=== PATIENT | female | born 1985 | race Caucasian/White ===

== ENCOUNTER 2023-10-22 17:53 | Emergency (ER) | payer OTHER, SELFPAY ==
[2023-10-22 18:03] VITALS: BP 141/67; PULSE 100; RESP 18; TEMP 36.9; O2SAT 97; BMI 28.3
[2023-10-22] MEDS: TET,DIPH,PERTUSS(ACELL),VAC/PF 0.5 ML SYRINGE IM (18:30)
--- NOTE | 2023-10-29 14:29 | ED_ITS ---
HPI - Wound/Laceration <Bhaskar Duarte PA-C - Last Filed: 10/29/23 14:35> General Chief Complaint: Wound/Laceration Stated Complaint: thumb laceration Time Seen by Provider: 10/22/23 18:28 Source: patient Mode of arrival: Ambulatory History of Present Illness HPI narrative: 38-year-old female presents to the ED status post a left thumb injury sustained just prior to arrival. Patient states that she was using a sharp knife at work, when she accidentally injured her right thumb and nail. Tetanus unknown. Bleeding is controlled with pressure. Patient endorses full range of motion. An educational interpreter was used to communicate with patient. Related Data Home Medications Medication Instructions Recorded Confirmed dextroamphetamine-amphetamine PO 01/25/22 09/18/23 [Adderall] dextroamphetamine-amphetamine ER 1 cap PO QAM 04/02/23 09/18/23 25 mg 24hr capsule,extend release famotidine 40 mg tablet 40 mg PO DAILY 04/02/23 09/18/23 quetiapine 50 mg tablet 50 mg PO ONCE PM 04/02/23 09/18/23 dextroamphetamine-amphetamine ER 1 cap PO QAM 09/18/23 09/18/23 20 mg 24hr capsule,extend release nortriptyline 10 mg capsule 10 mg PO ONCE PM 09/18/23 09/18/23 promethazine 12.5 mg tablet mg PO 09/18/23 09/18/23 sumatriptan succinate 100 mg tablet 100 mg PO DIRECTED 09/18/23 09/18/23 topiramate 25 mg tablet 25 mg PO BID 09/18/23 09/18/23 Previous Rx's Medication Instructions Recorded ondansetron 4 mg disintegrating 4 mg PO Q8H PRN nausea and 04/02/23 tablet vomiting #7 tabs ipratropium bromide 21 mcg (0.03 2 spray intranasal BID PRN 09/18/23 %) nasal spray Nasal/sinus congestion #30 mL Allergies Allergy/AdvReac Type Severity Reaction Status Date / Time From VICODIN Allergy Unknown VOMITING, Uncoded 09/18/23 16:42 SEVERE ABD PAIN Review of Systems <Bhaskar Duarte PA-C - Last Filed: 10/29/23 14:35> Constitutional Constitutional: Denies chills, Denies fatigue, Denies fever(s), Denies frequent falls, Denies lethargy and Denies weakness Eyes Eyes: Denies change in vision, Denies eye discharge, Denies irritation and Denies loss of vision ENT Ears, Nose, Mouth, and Throat: Denies change in voice, Denies dizziness, Denies neck pain, Denies sore throat and Denies throat swelling Cardiovascular Cardiovascular: Denies chest pain, Denies irregular heart rhythm, Denies lightheadedness, Denies palpitations, Denies dyspnea, Denies dyspnea on exertion and Denies orthopnea Respiratory Respiratory: Denies cough, Denies dyspnea, Denies dyspnea on exertion and Denies wheezing Gastrointestinal Gastrointestinal: Denies abdominal pain, Denies change in bowel habits, Denies diarrhea, Denies nausea and Denies vomiting Musculoskeletal Musculoskeletal: Denies neck pain and Denies numbness Integumentary/Breasts Skin/Breast: Denies pruritus, Denies erythema, Denies rash and Reports wounds Comments: Left thumb laceration Neurologic Neurologic: Denies behavioral changes, Denies confusion, Denies dizziness, Denies frequent falls, Denies loss of vision, Denies numbness and Denies weakness Psychiatric Psychiatric: Denies anxiety, Denies behavioral changes, Denies confusion, Denies depression, Denies homicidal ideation and Denies suicidal ideation Endocrine Endocrine: Denies fatigue, Denies flushing and Denies palpitations Hematologic/Lymphatic Hematologic/Lymphatic: Denies easy bruising Allergic/Immunologic Allergic/Immunologic: Denies urticaria, Denies throat swelling and Denies wheezing Patient History <Bhaskar Duarte PA-C - Last Filed: 10/29/23 14:35> Social History Smoking Status: Never smoker Smoking Status: Never smoker alcohol intake frequency: other Substance Use Type: does not use Exam <Bhaskar Duarte PA-C - Last Filed: 10/29/23 14:35> Narrative Exam Narrative: Const General:?cooperative, healthy appearing and comfortable [facility] Head:?normal to inspection Ears:?hearing grossly normal bilaterally Nose:?external nose normal Face and sinus:?normal facial exam and sinuses nontender Mouth:?oral mucosae normal Throat:?posterior oropharynx normal Eyes General:?appearance normal, both eyes and all related structures Neck Neck:?normal visual inspection and no lymphadenopathy noted Resp Effort & Inspection:?normal respiratory effort Auscultation:?clear to auscultation bilaterally Cardio Rate:?regular rate Rhythm:?regular rhythm Integumentary There is a small, shallow laceration to the tip of the left thumb, extending very slightly to the nail. No nail bed injury. Bleeding is controlled with pressure. Strength and sensation is intact. Full range of motion. Patient is neurovascularly intact. Neuro General:?patient alert, patient awake and patient oriented x3 Initial Vital Signs Initial Vital Signs: Vital Signs Temperature 98.4 F 10/22/23 18:03 Pulse Rate 100 H 10/22/23 18:03 Respiratory Rate 18 10/22/23 18:03 Blood Pressure 141/67 H 10/22/23 18:03 Pulse Oximetry 97 10/22/23 18:03 Oxygen Delivery Method Room Air 10/22/23 18:03 <Mimi Rojas MD - Last Filed: 11/05/23 21:34> Initial Vital Signs Initial Vital Signs: Vital Signs Temperature 98.4 F 10/22/23 18:03 Pulse Rate 100 H 10/22/23 18:03 Respiratory Rate 18 10/22/23 18:03 Blood Pressure 141/67 H 10/22/23 18:03 Pulse Oximetry 97 10/22/23 18:03 Oxygen Delivery Method Room Air 10/22/23 18:03 Course <Bhaskar Duarte PA-C - Last Filed: 10/29/23 14:35> Orders Ordered: Discontinued Medications Diphtheria/Tetanus/Acell Pertussis (Tet,Diph,Pertuss(Acell),Vac/Pf 0.5 Ml Syringe) 0.5 ml IM .ONCE ONE Stop: 10/22/23 18:28 Last Admin: 10/22/23 18:30 Dose: 0.5 ml Documented By: RL <Mimi Rojas MD - Last Filed: 11/05/23 21:34> Orders Ordered: Discontinued Medications Diphtheria/Tetanus/Acell Pertussis (Tet,Diph,Pertuss(Acell),Vac/Pf 0.5 Ml Syr rivera) 0.5 ml IM .ONCE ONE Stop: 10/22/23 18:28 Last Admin: 10/22/23 18:30 Dose: 0.5 ml Documented By: PAULA MDM - Wound/Laceration <Bhaskar Duarte PA-C - Last Filed: 10/29/23 14:35> MDM Narrative Medical decision making narrative: 38-year-old female presents to the ED status post a left thumb injury sustained just prior to arrival. There is a small shallow laceration to the tip of the left thumb extending slightly into the nail. No deeper structures visualized on exam. Laceration is shallow and clean, highly unlikely bone injury, no imaging indicated at this time. A small amount of glue was applied to repair the laceration, and then bandaged. Tetanus was updated. Wound care, signs of infection discussed with patient. ED return precautions discussed with patient. Patient verbalized understanding. Medical records reviewed: Yes Discharge Plan Departure Patient Disposition: Home Clinical Impression: Laceration of thumb with damage to nail Qualifiers: Encounter type: initial encounter Foreign body presence: without foreign body Laterality: left Qualified Code(s): S61.112A - Laceration without foreign body of left thumb with damage to nail, initial encounter Instructions: DI for Minor Laceration Activity Restrictions/Additional Instructions: You were evaluated in the ED today for a left thumb injury. It appears that you have a small laceration from the knife accident that was repaired with glue. Please keep your wound clean and dry for the 1st 24 hours after which you may wash gently with soap and water and dry well. Please keep the wound covered to protect it. Please watch for signs of infection including worsening redness, warmth, swelling, pain, discharge. Return to the ED if you note any signs of infection or worsening symptoms. Your tetanus vaccine was updated today and is good for the next 10 years. Prescriptions: No Action dextroamphetamine-amphetamine [Adderall] PO quetiapine 50 mg tablet 50 mg PO ONCE PM famotidine 40 mg tablet 40 mg PO DAILY dextroamphetamine-amphetamine 25 mg capsule,extended release 24hr 1 cap PO QAM ondansetron 4 mg tablet,disintegrating 4 mg PO Q8H PRN (Reason: nausea and vomiting) Qty: 7 0RF nortriptyline 10 mg capsule 10 mg PO ONCE PM topiramate 25 mg tablet 25 mg PO BID sumatriptan succinate 100 mg tablet 100 mg PO DIRECTED dextroamphetamine-amphetamine 20 mg capsule,extended release 24hr 1 cap PO QAM promethazine 12.5 mg tablet PO ipratropium bromide 21 mcg (0.03 %) spray,non-aerosol 2 spray intranasal BID PRN (Reason: Nasal/sinus congestion) Qty: 30 0RF Rx Instructions: administer into each nostril Referrals: Miscellaneous,Doctor, [Primary Care Provider] - Stand Alone Forms: Patient Portal/API ED Sign-out <Mimi Rojas MD - Last Filed: 11/05/23 21:34> Cosign ED Attending Cospauletteature Attestation: I was immediately available in the department for consultation throughout this patient's visit. Mimi Rojas MD
== END 2023-10-22 18:36 | disposition home or self-care (01) ==
PROVIDERS: Emergency Provider Student in an Organized Health Care Education/Training Program
DX: S61.112A Laceration without foreign body of left thumb with damage to nail, initial encounter (principal); W26.0XXA Contact with knife, initial encounter; Z23 Encounter for immunization
CPT/HCPCS: 90471; 99283; 90715

== ENCOUNTER → 2023-12-21 14:02 | Outpatient (CLI) | payer OTHER, SELFPAY ==
--- NOTE | 2023-12-21 14:04 | DI.RAD.S_ITS ---
PROCEDURE: XR FOOT LT MIN 3V INDICATIONS: L and I, foot and ankle pain TECHNIQUE: 3 views of the foot were acquired. COMPARISON: None. FINDINGS: Bones: No fractures or dislocations. Tiny plantar calcaneal enthesophyte is seen. No suspicious bony lesions. Soft tissues: No tibiotalar joint effusion. Achilles tendon appears normal. IMPRESSION: Tiny plantar calcaneal enthesophyte. No left foot fracture or dislocation. No gross soft tissue abnormalities. Dictated by: Rojas Saenz M.D. on 12/21/2023 at 17:18 Approved by: Rojas Saenz M.D. on 12/21/2023 at 17:19
--- NOTE | 2023-12-21 14:04 | DI.RAD.S_ITS ---
PROCEDURE: XR ANKLE LT MIN 3V INDICATIONS: L and I, foot and ankle pain TECHNIQUE: 3 views of the ankle were acquired. COMPARISON: None. FINDINGS: Bones: No fractures or dislocations. Ankle mortise is normally aligned. Tiny plantar calcaneal enthesophyte is seen. No suspicious bony lesions. Soft tissues: No tibiotalar joint effusion. Achilles tendon appears normal. IMPRESSION: * No ankle fracture or dislocation. Ankle mortise is congruent. Tiny plantar calcaneal enthesophyte. Dictated by: Rojas Saenz M.D. on 12/21/2023 at 16:16 Approved by: Rojas Saenz M.D. on 12/21/2023 at 17:18
== END ==
PROVIDERS: Referring Provider Nurse Practitioner Family; Visit Provider Nurse Practitioner Family
DX: S96.912A Strain of unspecified muscle and tendon at ankle and foot level, left foot, initial encounter (principal); M77.32 Calcaneal spur, left foot; X58.XXXA Exposure to other specified factors, initial encounter
CPT/HCPCS: 73610; 73630

== ENCOUNTER → 2024-01-07 17:12 | Outpatient (CLI) | payer SELFPAY ==
[2024-01-07 18:07] LABS: Influenza A - CEPHEID Flu A NEGATIVE (NEGATIVE); Influenza B - CEPHEID Flu B NEGATIVE (NEGATIVE); Respiratory Syncytial Virus Negative (Negative)
[2024-01-07 18:08] LABS: COVID-19 CEPHEID 4-PLEX PCR Negative (Negative)
== END ==
PROVIDERS: Visit Provider Student in an Organized Health Care Education/Training Program
DX: R09.81 Nasal congestion (principal)
CPT/HCPCS: 0241U

== ENCOUNTER 2024-01-11 19:19 | Inpatient (IN) | payer MEDICARE, SELFPAY ==
[2024-01-11] VITALS (16 sets, daily range): BP systolic 121–139; BP diastolic 71–91; PULSE 80–94; RESP 18; TEMP 37.1; O2SAT 93–98; BMI 26.4
[2024-01-11 19:49] LABS: Add Manual Diff / Slide Review NO; Basophils Absolute Auto 100 /uL (0-100); Basophils Percent Auto 0.3 % (0-2); Eosinophils Absolute Auto 100 /uL (0-450); Eosinophils Percent Auto 0.8 % (2-4); Hematocrit 36.2 % (36-46); Hemoglobin 12.1 g/dL (12.0-16.0); Lymphocytes Absolute Auto 1500 /uL (1100-4500); Lymphocytes Percent Auto 9.9 % (25-40); Mean Corpuscular HGB Conc 33.4 % (30-36); Mean Corpuscular Hemoglobin 26.8 PG (26-34); Mean Corpuscular Volume 80.3 fL (80-100); Monocytes Absolute Auto 1400 /uL (0-900); Monocytes Percent Auto 9.8 % (3-14); Neutrophils Absolute Auto 11700 /uL (1500-7000); Neutrophils Percent Auto 79.2 % (50-75); Platelet Count 431 X10^3/uL (150-400); Red Blood Cell Count 4.51 X10^6/uL (4.0-5.2); Red Cell Distribution Width 15.4 % (11.6-14.8); White Blood Cell Count 14.7 X10^3/uL (4.5-11.0)
[2024-01-11 19:54] LABS: Alanine Aminotransferase 58 IU/L (<35); Albumin 4.3 g/dL (3.5-5.0); Albumin Globulin Ratio 1.3 (1.0-2.8); Alkaline Phosphatase 54 U/L (38-126); Aspartate Aminotransferase 49 IU/L (14-36); BUN Creatinine Ratio 7.1 (6-22); Bilirubin Total 0.8 mg/dL (0.2-1.3); Blood Urea Nitrogen 15 mg/dL (7-17); Calcium 8.8 mg/dL (8.4-10.2); Carbon Dioxide 23 mmol/L (22-32); Chloride 102 mmol/L (98-107); Estimated Glomerular Filt Rate 30 mL/min (>60); Globulin 3.3 g/dL (1.7-4.1); Glucose 102 mg/dL (70-100); HEMOLYSIS 89 (0-50); Lipase 70 U/L (23-300); Sodium 135 mmol/L (137-145); Total Protein 7.6 g/dL (6.3-8.2)
[2024-01-11 19:55] LABS: Potassium 3.9 mmol/L (3.4-5.1)
[2024-01-11] MEDS: ONDANSETRON 4 MG/2 ML INJ IV ×2 (20:03→22:02)
[2024-01-11] MEDS: HYDROMORPHONE 0.5 MG INJ IV (20:25)
[2024-01-11] MEDS: SODIUM CHLORIDE 0.9% 1,000 ML 1000 ML IV (20:40)
[2024-01-11 20:44] LABS: Bacteria Urine Few (2-10); Culture Indicated Urine Cult Not Indicated; RBC Urine 0-1/HPF (0-5/HPF); Squamous Epithelial Cell Urine 5-10 /HPF (0-5/HPF); Urine Volume 10mL (spun); WBC Urine 0-1/HPF (0-5/HPF)
--- NOTE | 2024-01-11 20:46 | ED.ABDPAIN ---
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 Complains of recent right-sided dental/facial infection, prescribed course of Augmentin antibiotic on 01/07/2024, she has had subsequent nausea and vomiting and also nonbloody loose stools for the last 3 days. Multiple episodes of nonbloody emesis. Multiple episodes of nonbloody nonmucoid stools. She has right-sided abdominal pain since yesterday that is increasing. No injury or trauma new activities. Denies pain with urination. Denies cough shortness of breath. Related Data Home Medications Medication Instructions Recorded Confirmed dextroamphetamine-amphetamine ER 1 cap PO QAM 09/18/23 01/12/24 20 mg 24hr capsule,extend release topiramate 25 mg tablet 25 mg PO BID 09/18/23 01/12/24 Previous Rx's Medication Instructions Recorded ipratropium bromide 21 mcg (0.03 2 spray intranasal BID PRN 09/18/23 %) nasal spray Nasal/sinus congestion #30 mL amoxicillin 875 mg-potassium 1 tab PO Q12H dental infection 10 01/07/24 clavulanate 125 mg tablet days #20 tabs amoxicillin 875 mg-potassium 1 tab PO BID for 3 additional days 01/12/24 clavulanate 125 mg tablet #6 tabs Allergies Allergy/AdvReac Type Severity Reaction Status Date / Time From VICODIN Allergy Unknown VOMITING, Uncoded 01/07/24 16:32 SEVERE ABD PAIN Review of Systems Review of Systems Narrative: see HPI Patient History Social History household members: children Smoking Status: Never smoker alcohol intake: former Smoking Status: Never smoker alcohol intake frequency: other Substance Use Type: marijuana Exam Narrative Exam Narrative: GENERAL: Well-developed patient, in mild distress. HEAD: Atraumatic. Normocephalic. EYES: Pupils equal round and reactive. Extraocular motions intact. No scleral icterus. No injection or drainage. ENT: Nose without bleeding, purulent drainage. Throat without erythema, tonsillar hypertrophy or exudate. Airway patent. NECK: Trachea midline. Non tender CARDIOVASCULAR: Regular rate and rhythm without murmurs, gallops, or rubs. RESPIRATORY: Clear to auscultation. Breath sounds equal bilaterally. No wheezes, rales, or rhonchi. GASTROINTESTINAL: Abdomen soft, non-tender, nondistended. EXTREMITIES: No edema or joint tenderness. BACK: Nontender without deformity or crepitance. No flank tenderness. NEURO: AOx3. Motor functions grossly nonfocal SKIN: No rash or erythema of visible areas Initial Vital Signs Initial Vital Signs: Vital Signs Blood Pressure 132/86 01/11/24 19:30 Course Orders Ordered: ED Orders 01/12/24 06:46 Complete Blood Count AUTO DIFF Routine Comprehensive Metabolic Panel Routine Lactate (Lactic Acid) Stat Acetaminophen (Acetaminophen 325 Mg Tablet) 650 mg PO Q6H PRN PRN Reason: Fever/Mild Pain (1-3) Hydromorphone HCl (Hydromorphone 0.5 Mg Inj) 0.5 mg IV Q2H PRN PRN Reason: Pain, Moderate (4-6) Last Admin: 01/12/24 10:00 Dose: 0.5 mg Documented By: NATHALY Sodium Chloride (Normal Saline 0.9%) 1,000 mls @ 100 mls/hr IV CONT [facility] Last Admin: 01/12/24 05:20 Dose: 100 mls/hr Documented By: SHELTON Metronidazole (Flagyl) 500 mg in 100 mls @ 100 mls/hr IV Q8H [facility] Last Infusion: 01/12/24 14:10 Dose: Infused Documented By: Admin: 01/12/24 13:10 Dose: 100 mls/hr Documented By: Infusion: 01/12/24 06:23 Dose: Infused Documented By: Admin: 01/12/24 05:23 Dose: 100 mls/hr Documented By: SHELTON Ciprofloxacin (Cipro) 400 mg in 200 mls @ 200 mls/hr IV Q24H [facility] Last Infusion: 01/12/24 11:01 Dose: Infused Documented By: Admin: 01/12/24 10:01 Dose: 200 mls/hr Documented By: NATHALY Lorazepam (Lorazepam 2 Mg/Ml Inj) 0.5 mg IV Q4HR PRN PRN Reason: Nausea And Vomiting Last Admin: 01/12/24 14:20 Dose: 0.5 mg Documented By: NATHALY Metoclopramide HCl (Metoclopramide 10 Mg/2 Ml Inj) 5 mg IV Q6HR PRN PRN Reason: Nausea And Vomiting Last Admin: 01/12/24 10:00 Dose: 5 mg Documented By: NATHALY Naloxone HCl (Naloxone 0.4 Mg/Ml Vial) 0.2 mg IV Q2MIN PRN PRN Reason: Opiate Reversal Stored In Pharmacy 1 each PO PRN PRN PRN Reason: PROTOCOL Discontinued Medications Hydromorphone HCl (Hydromorphone 0.5 Mg Inj) 0.5 mg IV NOW ONE Stop: 01/11/24 20:19 Last Admin: 01/11/24 20:25 Dose: 0.5 mg Documented By: JONI Hydromorphone HCl (Hydromorphone 0.5 Mg Inj) 0.5 mg IV NOW ONE Stop: 01/11/24 23:57 Last Admin: 01/12/24 00:06 Dose: 0.5 mg Documented By: JONI Sodium Chloride (Normal Saline 0.9%) 1,000 mls @ 1,000 mls/hr IV BOLUS ONE Stop: 01/11/24 21:33 Last Infusion: 01/11/24 21:48 Dose: Infused Documented By: Admin: 01/11/24 20:40 Dose: 1,000 mls/hr Documented By: JONI Piperacillin Sod/Tazobactam (Sod 4.5 gm/ Sodium Chloride) 100 mls @ 200 mls/hr IV NOW ONE Stop: 01/12/24 00:22 Last Infusion: 01/12/24 01:20 Dose: Infused Documented By: Admin: 01/12/24 00:47 Dose: 200 mls/hr Documented By: Sodium Chloride (Normal Saline 0.9%) 1,000 mls @ 1,000 mls/hr IV BOLUS ONE Stop: 01/12/24 01:58 Last Infusion: 01/12/24 02:10 Dose: Infused Documented By: Admin: 01/12/24 01:09 Dose: 1,000 mls/hr Documented By: JONI Ciprofloxacin (Cipro) 400 mg in 200 mls @ 200 mls/hr IV Q12H [facility] Last Admin: 01/12/24 06:23 Dose: Not Given Documented By: SHELTON Ondansetron HCl (Ondansetron 4 Mg/2 Ml Inj) 4 mg IV NOW ONE Stop: 01/11/24 19:42 Last Admin: 01/11/24 20:03 Dose: 4 mg Documented By: Ondansetron HCl (Ondansetron 4 Mg/2 Ml Inj) 4 mg IV NOW ONE Stop: 01/11/24 21:51 Last Admin: 01/11/24 22:02 Dose: 4 mg Documented By: JONI Ondansetron HCl (Ondansetron 4 Mg/2 Ml Inj) 4 mg IV NOW ONE Stop: 01/11/24 21:02 Last Admin: 01/11/24 22:30 Dose: Not Given Documented By: JONI Ondansetron HCl (Ondansetron 4 Mg Odt Prepack) 1 bottle MISC DIRECTED ONE Stop: 01/12/24 00:56 Last Admin: 01/12/24 03:30 Dose: Not Given Documented By: JONI Tramadol HCl (Tramadol 50 Mg Tablet) 50 mg PO NOW ONE Stop: 01/12/24 00:51 Last Admin: 01/12/24 02:01 Dose: 50 mg Documented By: JONI Vital Signs Vital signs: Vital Signs - 8 hr 01/11/24 19:35 Temperature 98.8 F Pulse Rate 85 Respiratory Rate 18 Blood Pressure 132/86 Pulse Oximetry 98 Oxygen Delivery Method Room Air MDM - Abdominal Pain Lab Data Attestation: I reviewed the patient's lab results. 01/12/24 06:46 01/12/24 06:46 Labs: Lab Results 01/11/24 01/11/24 01/11/24 Range/Units 19:15 20:20 21:47 WBC 14.7 H (4.5-11.0) X10^3/uL RBC 4.51 (4.0-5.2) X10^6/uL Hgb 12.1 (12.0-16.0) g/dL Hct 36.2 (36-46) % MCV 80.3 (80-100) fL MCH 26.8 (26-34) PG MCHC 33.4 (30-36) % RDW 15.4 H (11.6-14.8) % Plt Count 431 H (150-400) X10^3/uL Neut % (Auto) 79.2 H (50-75) % Lymph % (Auto) 9.9 L (25-40) % [place] % (Auto) 9.8 (3-14) % Eos % (Auto) 0.8 L (2-4) % Baso % (Auto) 0.3 (0-2) % Neut # (Auto) 17855 H (5398-4333) /uL Lymph # (Auto) 1500 (9337-7595) /uL [place] # (Auto) 1400 H (0-900) /uL Eos # (Auto) 100 (0-450) /uL Baso # (Auto) 100 (0-100) /uL Sodium 135 L (137-145) mmol/L Potassium 3.9 (3.4-5.1) mmol/L Chloride 102 (98-107) mmol/L Carbon Dioxide 23 (22-32) mmol/L BUN 15 (7-17) mg/dL Creatinine 2.12 H (0.52-1.04) mg/dL Estimated GFR 30 L (>60) mL/min BUN/Creatinine Ratio 7.1 (6-22) Glucose 102 H (70-100) mg/dL Calcium 8.8 (8.4-10.2) mg/dL Total Bilirubin 0.8 (0.2-1.3) mg/dL AST 49 H (14-36) IU/L ALT 58 H (<35) IU/L Alkaline Phosphatase 54 (38-126) U/L Ammonia < 9 L (9-30) umol/L Total Protein 7.6 (6.3-8.2) g/dL Albumin 4.3 (3.5-5.0) g/dL Globulin 3.3 (1.7-4.1) g/dL Albumin/Globulin Ratio 1.3 (1.0-2.8) Lipase 70 (23-300) U/L HCG, Quant < 2.39 mIU/mL Urine RBC 0-1/hpf (0-5/HPF) Urine WBC 0-1/hpf (0-5/HPF) Ur Squamous Epith Cells 5-10 /hpf H (0-5/HPF) Urine Bacteria Few (2-10) H (None) Ur Culture Indicated? Cult not indicated Vol Urine Centrifuged 10ml (spun) 01/12/24 Range/Units 02:51 WBC (4.5-11.0) X10^3/uL RBC (4.0-5.2) X10^6/uL Hgb (12.0-16.0) g/dL Hct (36-46) % MCV (80-100) fL MCH (26-34) PG MCHC (30-36) % RDW (11.6-14.8) % Plt Count (150-400) X10^3/uL Neut % (Auto) (50-75) % Lymph % (Auto) (25-40) % [place] % (Auto) (3-14) % Eos % (Auto) (2-4) % Baso % (Auto) (0-2) % Neut # (Auto) (8292-6754) /uL Lymph # (Auto) (2408-5411) /uL [place] # (Auto) (0-900) /uL Eos # (Auto) (0-450) /uL Baso # (Auto) (0-100) /uL Sodium 138 (137-145) mmol/L Potassium 3.7 (3.4-5.1) mmol/L Chloride 111 H (98-107) mmol/L Carbon Dioxide 18 L (22-32) mmol/L BUN 13 (7-17) mg/dL Creatinine 1.93 H (0.52-1.04) mg/dL Estimated GFR 33 L (>60) mL/min BUN/Creatinine Ratio 6.7 (6-22) Glucose 114 H (70-100) mg/dL Calcium 7.7 L (8.4-10.2) mg/dL Total Bilirubin (0.2-1.3) mg/dL AST (14-36) IU/L ALT (<35) IU/L Alkaline Phosphatase (38-126) U/L Ammonia (9-30) umol/L Total Protein (6.3-8.2) g/dL Albumin (3.5-5.0) g/dL Globulin (1.7-4.1) g/dL Albumin/Globulin Ratio (1.0-2.8) Lipase (23-300) U/L HCG, Quant mIU/mL Urine RBC (0-5/HPF) Urine WBC (0-5/HPF) Ur Squamous Epith Cells (0-5/HPF) Urine Bacteria (None) Ur Culture Indicated? Vol Urine Centrifuged Point of care testing: Point of Care Testing Test Results Negative Urine Dip Bedside Urine Glucose Negative Bedside Urine Bilirubin - Negative Bedside Urine Ketone - Negative Urine Specific [place] 1.015 Bedside Urine Occult Blood - Negative Bedside Urine pH 6.0 Bedside Urine Protein ++ 100 Bedside Urine Urobilinogen - Negative Bedside Urine Nitrite - Negative Bedside Urine Leukocytes - Negative Esterase Imaging Data CT scan - abdomen/pelvis: Radiologist's Impression: [address] [address] [address] Scan Report Signed Patient: Lupe rS MR#: [id number] : 1985 Acct:[id number] Age/Sex: 39 / F Date of Service: 01/11/24 Loc: ED Accession Number: [id number] Procedure: CT abdomen pelvis wo con Ordering Provider: Ryder Lee MD PROCEDURE: CT ABDOMEN PELVIS WO CON INDICATIONS: abd pain, inc creat, noncontrast TECHNIQUE: Axial sections were acquired from the lung bases to the pubic symphysis. Coronal and sagittal reformats were performed. For radiation dose reduction, the following was used: automated exposure control, adjustment of mA and/or kV according to patient size. COMPARISON: None. FINDINGS: Image quality: Diagnostic Lower chest: Unremarkable. Basal atelectasis Liver: No contour deforming mass. Solid organs are not well evaluated without IV contrast. Gallbladder and biliary system: Unremarkable, nondilated Pancreas: No ductal dilation Spleen: Nonenlarged Adrenals: No discrete nodules Kidneys: No contour deforming mass or hydronephrosis no obstructing calcified stone or hydronephrosis Vessels and lymph nodes: No abdominal aortic aneurysm. No pathologic lymph nodes by size criteria. Bowel and peritoneum: No small bowel obstruction. No pathologic ascites. Mostly liquid right-sided colonic contents. Body wall: Tiny fat containing umbilical hernia Pelvis: Bladder is unremarkable. Prominent adnexal structures, not well evaluated on CT Bones: Mild lumbosacral degenerative changes IMPRESSION: Mildly distended liquid proximal colonic contents, possibly colitis. No small bowel obstruction. No obstructing calcified stone or hydronephrosis Prominent adnexal structures, probably ovarian cysts. Consider ultrasound if there is further concern. Other findings as above. Limited noncontrast CT Dictated by: Daniele Iglesias M.D. on 01/11/2024 at 22:02 Approved by: Daniele Iglesias M.D. 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 No grossly obvious facial swelling. Some tenderness right lower quadrant. Afebrile, sirs screen negative. HCG negative. Creatinine elevated, likely prerenal, IV fluids ordered. We will add stool studies including C diff toxin. DX consider dehydration from enteritis/gastroenteritis, C diff colitis, other form of colitis, diverticulitis, bowel obstruction, acute appendicitis, other. CT abdomen and pelvis noncontrast imaging requested. CT abdomen and pelvis noncontrast study shows right-sided fluid-filled large colon, possible colitis, no mention of inflammatory changes, no bowel obstructive changes, no perforation or abscess formation. No obstructive uropathy changes, no intrinsic renal pathology described. See radiology report No stool specimen to screen for C diff or other pathogens, however CT findings seem focal and not caldera-colitis like changes. Patient taking Augmentin for dental infection already. IV Zosyn dose for now. Repeat IV opiate pain medication. Repeat BMP after 2000 mL normal saline shows creatinine 1.93 little improvement, serum CO2 18 decreasing after IV fluids. Lipase was normal prior. Patient still with nausea unable to keep oral fluid challenge. Consider admission, will contact hospitalist. 0400, case discussed with hospitalist Dr. Chin, accepts patient for admission to inpatient Critical Care Time Critical Care Time Critical Care Time: Yes Total Critical Care Time: 35 Attestation: The high probability of a clinically significant, sudden or life threatening deterioration of the [abdominopelvic, genitourinary, gastrointestinal] system(s) required my full and direct attention, intervention and personal management. The aggregate critical care time was [35] minutes. This time is in addition to time spent performing reported procedures but includes the following: [x] Data Review and interpretation [x] Patient assessment and monitoring of vital signs [x] Documentation [x] Medication orders and management Discharge Plan Departure Patient Disposition: Admitted As Inpatient Clinical Impression: Abdominal pain, Colitis, Dehydration, Nausea vomiting and diarrhea, ALBERT (acute kidney injury), History of deafness Admit Date/Time: 01/12/24 04:12 Admit Provider: Lisandro Chin
[2024-01-11 21:12] LABS: HCG Quantitative /Beta subunit < 2.39 mIU/mL
[2024-01-11 22:05] LABS: Ammonia (NH3) < 9 umol/L (9-30)
[2024-01-12] VITALS (16 sets, daily range): BP systolic 104–149; BP diastolic 53–88; PULSE 67–87; RESP 12–18; TEMP 36.4–37; O2SAT 95–99; BMI 27.5
[2024-01-12] MEDS: HYDROMORPHONE 0.5 MG INJ IV ×4 (00:06→20:11)
[2024-01-12] MEDS: PIPERACILLIN/TAZO 4.5 GM in SODIUM CHLORIDE 0.9% 100 ML IV (00:47)
[2024-01-12] MEDS: SODIUM CHLORIDE 0.9% 1,000 ML 1000 ML IV (01:09)
[2024-01-12] MEDS: TRAMADOL 50 MG TABLET PO (02:01)
[2024-01-12 03:16] LABS: BUN Creatinine Ratio 6.7 (6-22); Blood Urea Nitrogen 13 mg/dL (7-17); Calcium 7.7 mg/dL (8.4-10.2); Carbon Dioxide 18 mmol/L (22-32); Chloride 111 mmol/L (98-107); Estimated Glomerular Filt Rate 33 mL/min (>60); Glucose 114 mg/dL (70-100); HEMOLYSIS < 15 (0-50); Potassium 3.7 mmol/L (3.4-5.1); Sodium 138 mmol/L (137-145)
[2024-01-12] MEDS: SODIUM CHLORIDE 0.9% 1,000 ML 100 ML IV ×2 (05:20→17:54)
[2024-01-12] MEDS: metroNIDAZOLE 500 MG/100 ML PIGGYBACK 100 MG IV ×3 (05:23→19:57)
[2024-01-12 06:56] LABS: Add Manual Diff / Slide Review NO; Basophils Absolute Auto 100 /uL (0-100); Basophils Percent Auto 0.8 % (0-2); Eosinophils Absolute Auto 0 /uL (0-450); Eosinophils Percent Auto 0.2 % (2-4); Hematocrit 33.4 % (36-46); Lymphocytes Absolute Auto 1000 /uL (1100-4500); Lymphocytes Percent Auto 8.2 % (25-40); Mean Corpuscular HGB Conc 32.9 % (30-36); Mean Corpuscular Hemoglobin 26.6 PG (26-34); Monocytes Absolute Auto 1100 /uL (0-900); Monocytes Percent Auto 8.5 % (3-14); Neutrophils Absolute Auto 10200 /uL (1500-7000); Neutrophils Percent Auto 82.3 % (50-75); Platelet Count 363 X10^3/uL (150-400); Red Blood Cell Count 4.12 X10^6/uL (4.0-5.2); Red Cell Distribution Width 15.6 % (11.6-14.8); White Blood Cell Count 12.4 X10^3/uL (4.5-11.0)
--- NOTE | 2024-01-12 06:59 | PC.NURSE ---
Pt. admiitted to room 209. oriented to her room. Assessment done through [place] Sign Language. Home medications sent to Pharmacy, vomited 300 cc of bile looking emesis. C/O abdominal pain, but does not want any order for pain when having conversation with Dr. Chin. Will continue plan of care & monitor.
--- NOTE | 2024-01-12 07:13 | P.HP_ITS ---
History of Present Illness History of Present Illness Chief complaint: abd pain Narrative: 39 year old female with no significant past medical history other than legally deaf presents with nausea, vomiting, diarrhea and abdominal pain. Per the patient's report, on 01/07/24, the patient had a tooth infection and was prescribed Augmentin. The patient states that after taking Augmentin for 2-3 days, the patient started to nausea, non bloody vomiting/diarrhea. The patient states that due to her severe nausea and vomiting, the patient couldn't take much the rest of her Augmentin. The patient also developed some right sided, moderate, aching abdominal pain since. Otherwise, the patient denies any fever, chills, chest pain, shortness of breath or dysuria. In our ER, the patient was hemodynamically stable. WBC was 14 but no other sign of sepsis. CT scan of abdomen shows possible localized colitis. C dif was sent. Patient received one dose of zosyn. UA was negative. Cr was 2.2 but after 2L of IVF Cr only improved to 1.9. Our ER physician requested admission for further treatment. [facility] Social History household members: children Smoking Status: Never smoker alcohol intake: former Meds Home Medications and Allergies Home Medications Medication Instructions Recorded Confirmed Type dextroamphetamine-amphetamine ER 1 cap PO QAM 09/18/23 01/12/24 History 20 mg 24hr capsule,extend release ipratropium bromide 21 mcg (0.03 2 spray intranasal BID PRN 09/18/23 01/12/24 Rx %) nasal spray Nasal/sinus congestion #30 mL topiramate 25 mg tablet 25 mg PO BID 09/18/23 01/12/24 History amoxicillin 875 mg-potassium 1 tab PO Q12H dental infection 10 01/07/24 01/12/24 Rx clavulanate 125 mg tablet days #20 tabs amoxicillin 875 mg-potassium 1 tab PO BID for 3 additional days 01/12/24 Rx clavulanate 125 mg tablet #6 tabs Allergies Allergy/AdvReac Type Severity Reaction Status Date / Time From VICODIN Allergy Unknown VOMITING, Uncoded 01/07/24 16:32 SEVERE ABD PAIN Review of Systems Review of Systems Narrative: 12 points of ROS are negative except for what was mentioned per HPI. Exam Vital Signs (past 8 hours): - 01/11/24 23:30 01/11/24 23:30 01/12/24 00:00 Temperature Pulse Rate 90 Respiratory Rate Blood Pressure 134/77 115/58 L Pulse Oximetry 97 Oxygen Delivery Method Oxygen Flow Rate 01/12/24 00:00 01/12/24 00:30 01/12/24 00:30 Temperature Pulse Rate 75 79 Respiratory Rate Blood Pressure 104/53 L Pulse Oximetry 96 95 Oxygen Delivery Method Oxygen Flow Rate 01/12/24 01:00 01/12/24 01:00 01/12/24 01:26 Temperature Pulse Rate 76 Respiratory Rate Blood Pressure 109/65 132/75 Pulse Oximetry 95 Oxygen Delivery Method Oxygen Flow Rate 01/12/24 01:26 01/12/24 01:30 01/12/24 01:30 Temperature Pulse Rate 81 76 Respiratory Rate Blood Pressure 120/68 Pulse Oximetry 98 98 Oxygen Delivery Method Oxygen Flow Rate 01/12/24 02:00 01/12/24 02:00 01/12/24 02:30 Temperature Pulse Rate 76 Respiratory Rate Blood Pressure 133/83 128/57 L Pulse Oximetry 98 Oxygen Delivery Method Oxygen Flow Rate 01/12/24 02:30 01/12/24 03:00 01/12/24 03:00 Temperature Pulse Rate 84 70 Respiratory Rate Blood Pressure 134/70 Pulse Oximetry 97 95 Oxygen Delivery Method Oxygen Flow Rate 01/12/24 03:30 01/12/24 04:00 01/12/24 04:00 Temperature Pulse Rate 75 77 Respiratory Rate Blood Pressure 125/74 Pulse Oximetry 95 98 Oxygen Delivery Method Oxygen Flow Rate 01/12/24 04:30 01/12/24 04:30 01/12/24 06:38 Temperature 98.0 F Pulse Rate 67 70 Respiratory Rate 14 Blood Pressure 141/72 H 127/81 Pulse Oximetry 95 98 Oxygen Delivery Method Room Air Oxygen Flow Rate 0 Oxygen Delivery Method Room Air Oxygen Flow Rate 0 Narrative Exam Narrative: GENERAL: The patient is not in any acute distressed. Awake and alert. HEENT: Nonicteric sclerae, PERRLA, EOMI. Oropharynx clear. Moist mucous membranes. Conjunctivae appear well perfused. HEART: Regular rate and rhythm without murmurs. No lower extremities edema. LUNGS: Clear to auscultation bilaterally. No wheezing, crackles or rhonchi ABDOMEN: Soft, right sided tenderness without rebound or guarding. positive bowel sounds, SKIN: No rash, no excessive bruising, petechiae, or purpura. NEUROLOGIC: AxO x 3. Cranial nerves II-XII intact without motor/sensory deficit. Objective Labs 01/12/24 06:46 01/12/24 02:51 Labs: Laboratory Results - last 24 hr 01/11/24 01/11/24 01/11/24 19:15 20:20 21:47 WBC 14.7 H RBC 4.51 Hgb 12.1 Hct 36.2 MCV 80.3 MCH 26.8 MCHC 33.4 RDW 15.4 H Plt Count 431 H Neut % (Auto) 79.2 H Lymph % (Auto) 9.9 L [place] % (Auto) 9.8 Eos % (Auto) 0.8 L Baso % (Auto) 0.3 Neut # (Auto) 75685 H Lymph # (Auto) 1500 [place] # (Auto) 1400 H Eos # (Auto) 100 Baso # (Auto) 100 Sodium 135 L Potassium 3.9 Chloride 102 Carbon Dioxide 23 BUN 15 Creatinine 2.12 H Estimated GFR 30 L BUN/Creatinine Ratio 7.1 Glucose 102 H Calcium 8.8 Total Bilirubin 0.8 AST 49 H ALT 58 H Alkaline Phosphatase 54 Ammonia < 9 L Total Protein 7.6 Albumin 4.3 Globulin 3.3 Albumin/Globulin Ratio 1.3 Lipase 70 HCG, Quant < 2.39 Urine RBC 0-1/hpf Urine WBC 0-1/hpf Ur Squamous Epith Cells 5-10 /hpf H Urine Bacteria Few (2-10) H Ur Culture Indicated? Cult not indicated Vol Urine Centrifuged 10ml (spun) 01/12/24 01/12/24 02:51 06:46 WBC 12.4 H RBC 4.12 Hgb 11.0 L Hct 33.4 L MCV 81.0 MCH 26.6 MCHC 32.9 RDW 15.6 H Plt Count 363 Neut % (Auto) 82.3 H Lymph % (Auto) 8.2 L [place] % (Auto) 8.5 Eos % (Auto) 0.2 L Baso % (Auto) 0.8 Neut # (Auto) 10679 H Lymph # (Auto) 1000 L [place] # (Auto) 1100 H Eos # (Auto) 0 Baso # (Auto) 100 Sodium 138 Potassium 3.7 Chloride 111 H Carbon Dioxide 18 L BUN 13 Creatinine 1.93 H Estimated GFR 33 L BUN/Creatinine Ratio 6.7 Glucose 114 H Calcium 7.7 L Total Bilirubin AST ALT Alkaline Phosphatase Ammonia Total Protein Albumin Globulin Albumin/Globulin Ratio Lipase HCG, Quant Urine RBC Urine WBC Ur Squamous Epith Cells Urine Bacteria Ur Culture Indicated? Vol Urine Centrifuged Assessment & Plan Assessment & Plan narrative: Possible colitis. Recent treatment of Augmentin.. Admit the patient to medical inpatient. Patient is not septic at this time. C dif studies ordered in ER. Continue IVF and will start patient on IV Ciprofloxacin/Flagyl. Recent tooth infection s/p 2-3 days of Augmentin as outpatient. Note patient also received a dose of Zosyn in ER. Will continue antibiotics as above. Patient will need to follow up with dentist post chischarge. Leukocytosis. likely from above. Not septic. Monitor for now. ALBERT. Cr 2.2 -> 1.9 after 2L of IVF. Likely from dehydration secondary to N/V/D. IVF and monitor renal function. DVT PPx SCDs Code status full code Disposition 2-3 days to home. Time-Based Coding :: [TOTAL MINUTES] spent with patient and on the chart (including review of chart, obtaining history, exam, reviewing outside data, placing orders, documenting exam and treatment plan, and counseling patient) on [DATE]. Quality VTE Deep Vein Thrombosis/Pulmonary Embolism Present on Admission: No
[2024-01-12 07:24] LABS: Lactate (Lactic Acid) 0.5 mmol/L (0.7-2.1)
[2024-01-12 07:26] LABS: Alanine Aminotransferase 41 IU/L (<35); Albumin 3.6 g/dL (3.5-5.0); Albumin Globulin Ratio 1.3 (1.0-2.8); Alkaline Phosphatase 57 U/L (38-126); Aspartate Aminotransferase 29 IU/L (14-36); BUN Creatinine Ratio 7.1 (6-22); Bilirubin Total 0.5 mg/dL (0.2-1.3); Blood Urea Nitrogen 14 mg/dL (7-17); Calcium 7.8 mg/dL (8.4-10.2); Carbon Dioxide 21 mmol/L (22-32); Chloride 111 mmol/L (98-107); Estimated Glomerular Filt Rate 33 mL/min (>60); Globulin 2.7 g/dL (1.7-4.1); Glucose 116 mg/dL (70-100); HEMOLYSIS < 15 (0-50); Potassium 3.8 mmol/L (3.4-5.1); Sodium 139 mmol/L (137-145); Total Protein 6.3 g/dL (6.3-8.2)
--- NOTE | 2024-01-12 07:27 | PM.HP.1 ---
History of Present Illness History of Present Illness Date Patient Seen: 01/12/24 Chief complaint: abd pain Narrative: From night doctor: 39 year old female with no significant past medical history other than legally deaf presents with nausea, vomiting, diarrhea and abdominal pain. Per the patient's report, on 01/07/24, the patient had a tooth infection and was prescribed Augmentin. The patient states that after taking Augmentin for 2-3 days, the patient started to nausea, non bloody vomiting/diarrhea. The patient states that due to her severe nausea and vomiting, the patient couldn't take much the rest of her Augmentin. The patient also developed some right sided, moderate, aching abdominal pain since. Otherwise, the patient denies any fever, chills, chest pain, shortness of breath or dysuria. In our ER, the patient was hemodynamically stable. WBC was 14 but no other sign of sepsis. CT scan of abdomen shows possible localized colitis. C dif was sent. Patient received one dose of zosyn. UA was negative. Cr was 2.2 but after 2L of IVF Cr only improved to 1.9. Our ER physician requested admission for further treatment. Additional information: She still has persistent nausea. No bowel movements since arrival. Her abdominal pain is 4/10 on the right lower abdomen. No one at home has been ill, she lives with her son. No chest pain, or dyspnea. [facility] Social History household members: children Smoking Status: Never smoker alcohol intake: former Meds Home Medications and Allergies Home Medications Medication Instructions Recorded Confirmed Type dextroamphetamine-amphetamine ER 1 cap PO QAM 09/18/23 01/12/24 History 20 mg 24hr capsule,extend release ipratropium bromide 21 mcg (0.03 2 spray intranasal BID PRN 09/18/23 01/12/24 Rx %) nasal spray Nasal/sinus congestion #30 mL topiramate 25 mg tablet 25 mg PO BID 09/18/23 01/12/24 History amoxicillin 875 mg-potassium 1 tab PO Q12H dental infection 10 01/07/24 01/12/24 Rx clavulanate 125 mg tablet days #20 tabs amoxicillin 875 mg-potassium 1 tab PO BID for 3 additional days 01/12/24 Rx clavulanate 125 mg tablet #6 tabs Allergies Allergy/AdvReac Type Severity Reaction Status Date / Time From VICODIN Allergy Unknown VOMITING, Uncoded 01/07/24 16:32 SEVERE ABD PAIN Review of Systems Review of Systems Narrative: All else reviewed and otherwise unremarkable except as noted in the history and physical. Exam Vital Signs (past 8 hours): - 01/11/24 23:30 01/11/24 23:30 01/12/24 00:00 Temperature Pulse Rate 90 Respiratory Rate Blood Pressure 134/77 115/58 L Pulse Oximetry 97 Oxygen Delivery Method Oxygen Flow Rate 01/12/24 00:00 01/12/24 00:30 01/12/24 00:30 Temperature Pulse Rate 75 79 Respiratory Rate Blood Pressure 104/53 L Pulse Oximetry 96 95 Oxygen Delivery Method Oxygen Flow Rate 01/12/24 01:00 01/12/24 01:00 01/12/24 01:26 Temperature Pulse Rate 76 Respiratory Rate Blood Pressure 109/65 132/75 Pulse Oximetry 95 Oxygen Delivery Method Oxygen Flow Rate 01/12/24 01:26 01/12/24 01:30 01/12/24 01:30 Temperature Pulse Rate 81 76 Respiratory Rate Blood Pressure 120/68 Pulse Oximetry 98 98 Oxygen Delivery Method Oxygen Flow Rate 01/12/24 02:00 01/12/24 02:00 01/12/24 02:30 Temperature Pulse Rate 76 Respiratory Rate Blood Pressure 133/83 128/57 L Pulse Oximetry 98 Oxygen Delivery Method Oxygen Flow Rate 01/12/24 02:30 01/12/24 03:00 01/12/24 03:00 Temperature Pulse Rate 84 70 Respiratory Rate Blood Pressure 134/70 Pulse Oximetry 97 95 Oxygen Delivery Method Oxygen Flow Rate 01/12/24 03:30 01/12/24 04:00 01/12/24 04:00 Temperature Pulse Rate 75 77 Respiratory Rate Blood Pressure 125/74 Pulse Oximetry 95 98 Oxygen Delivery Method Oxygen Flow Rate 01/12/24 04:30 01/12/24 04:30 01/12/24 06:38 Temperature 98.0 F Pulse Rate 67 70 Respiratory Rate 14 Blood Pressure 141/72 H 127/81 Pulse Oximetry 95 98 Oxygen Delivery Method Room Air Oxygen Flow Rate 0 Oxygen Delivery Method Room Air Oxygen Flow Rate 0 Narrative Exam Narrative: NAD, alert and oriented, fluent speech, calm. Hearing impaired, used a sign vice president payer. Some dry heaves. Normocephalic skull, EOMI, anicteric sclera, symmetric pupils. Oropharynx unremarkable, no droop. Neck supple, midline trachea, no adenopathy. Lungs clear, normal rate and effort. Heart regular, no murmur gallop or rub. Abdomen is soft, non distended and non tender. Extremities are free of edema. Skin is free of rash or lesions. Joints are not swollen or deformed. Judgment appears to be normal. Objective Imaging CT scan - abdomen: Radiologist's impression: Mildly distended liquid proximal colonic contents, possibly colitis. No small bowel obstruction. No obstructing calcified stone or hydronephrosis Prominent adnexal structures, probably ovarian cysts. Consider ultrasound if there is further concern. Other findings as above. Limited noncontrast CT Labs 01/12/24 06:46 01/12/24 06:46 Labs: Laboratory Results - last 24 hr 01/11/24 01/11/24 01/11/24 19:15 20:20 21:47 WBC 14.7 H RBC 4.51 Hgb 12.1 Hct 36.2 MCV 80.3 MCH 26.8 MCHC 33.4 RDW 15.4 H Plt Count 431 H Neut % (Auto) 79.2 H Lymph % (Auto) 9.9 L [place] % (Auto) 9.8 Eos % (Auto) 0.8 L Baso % (Auto) 0.3 Neut # (Auto) 00786 H Lymph # (Auto) 1500 [place] # (Auto) 1400 H Eos # (Auto) 100 Baso # (Auto) 100 Sodium 135 L Potassium 3.9 Chloride 102 Carbon Dioxide 23 BUN 15 Creatinine 2.12 H Estimated GFR 30 L BUN/Creatinine Ratio 7.1 Glucose 102 H Calcium 8.8 Total Bilirubin 0.8 AST 49 H ALT 58 H Alkaline Phosphatase 54 Ammonia < 9 L Total Protein 7.6 Albumin 4.3 Globulin 3.3 Albumin/Globulin Ratio 1.3 Lipase 70 HCG, Quant < 2.39 Urine RBC 0-1/hpf Urine WBC 0-1/hpf Ur Squamous Epith Cells 5-10 /hpf H Urine Bacteria Few (2-10) H Ur Culture Indicated? Cult not indicated Vol Urine Centrifuged 10ml (spun) 01/12/24 01/12/24 02:51 06:46 WBC 12.4 H RBC 4.12 Hgb 11.0 L Hct 33.4 L MCV 81.0 MCH 26.6 MCHC 32.9 RDW 15.6 H Plt Count 363 Neut % (Auto) 82.3 H Lymph % (Auto) 8.2 L [place] % (Auto) 8.5 Eos % (Auto) 0.2 L Baso % (Auto) 0.8 Neut # (Auto) 76126 H Lymph # (Auto) 1000 L [place] # (Auto) 1100 H Eos # (Auto) 0 Baso # (Auto) 100 Sodium 138 Potassium 3.7 Chloride 111 H Carbon Dioxide 18 L BUN 13 Creatinine 1.93 H Estimated GFR 33 L BUN/Creatinine Ratio 6.7 Glucose 114 H Calcium 7.7 L Total Bilirubin AST ALT Alkaline Phosphatase Ammonia Total Protein Albumin Globulin Albumin/Globulin Ratio Lipase HCG, Quant Urine RBC Urine WBC Ur Squamous Epith Cells Urine Bacteria Ur Culture Indicated? Vol Urine Centrifuged Assessment & Plan Assessment & Plan narrative: 1. Colitis, present on admission and active. 2. Recent tooth infection with 3 days of recent Augmentin. Present on admission and active. 3. Leukocytosis, present on admission and active. 4. ALBERT, present on admission and active. 5. Hearing impaired, present on admission and stable. Plan: -IV fluids for volume depletion, stool PCR when able. -monitor renal function. -continue antibiotics -symptomatic treatment of pain and nausea. TANA: 01/12 if feelign better. Time-Based Coding :: 35 min spent with patient and on the chart (including review of chart, obtaining history, exam, reviewing outside data, placing orders, documenting exam and treatment plan, and counseling patient) on 01/11. Quality VTE Deep Vein Thrombosis/Pulmonary Embolism Present on Admission: No MIPS - Admit I confirm the patient?s Advance Care Plan is present, Code status is documented, Surrogate decision maker is in patient?s record [If Yes, STOP here]: Yes MIPS - Meds 'Current medications' to include all prescriptions, [id number] products, herbals, cannabis/cannabidiol products, and vitamin/mineral/dietary (nutritional) supplements. I have utilized all available resources to obtain, update, or review the patient?s current medications. [If Yes, STOP here]: Yes
[2024-01-12] MEDS: METOCLOPRAMIDE 10 MG/2 ML INJ 5 MG IV ×2 (10:00→16:54)
[2024-01-12] MEDS: CIPROFLOXACIN 400 MG/200 ML PIGGYBACK 200 MG IV (10:01)
--- NOTE | 2024-01-12 12:26 | CM.DANOTE ---
Patient is a 39 yo female who was admitted INPT Status on 01/12/24 for Abd Pain. Pt has Medicaid for insurance and no current PCP. EMR was reviewed. Per MD, pt with hx of being legally deaf and using [place] Sign Language and admitted after nausea/vomiting and likely colitis on imaging and not yet stable for discharge. MD does not anticipate any barriers to discharge or discharge needs once medically stable. No hx of admission to [facility] previously and pt has mother locally and typically uses [facility] medical needs. Per RN, pt has been independent in room and no concerns noted at this time. No bedside assessment completed yet today due to triage needs and SW to follow closely for bedside assessment to confirm safe d/c plan of home. ISABELL Villalta Discharge Planning/Care Management CM Discharge Assessment Start: 01/12/24 12:25 Freq: Status: Active Protocol: Document 01/12/24 12:25 BF (Rec: 01/12/24 12:26 BF [id number]) Discharge Planning Assessment Assigned Director Of Strategic Marketing ISABELL Rodriguez DPOA/Assigned Designee Name mother Stacey Contact Information [phone] Advance Directives? No Advance Directives on File No History Provided By Patient,Medical Record Has Patient been admitted in last 30 No days? Prior Living Arrangements Apartment/Condo Household Members children Type of transporation used prior to Drives own vehicle admit Independent with ADL's Yes Is patient alert and oriented? Yes Caregiver for Another Yes: children Barriers to Discharge No Discharge Plan Home Transportation Arrangement Likely mother Referrals Initiated None needed Whiteboard Updated in Patient Room with Yes name and ext. # of Director Of Strategic Marketing Review Status In Process Please Provide Date Initial DC 01/12/24 Assessment Was Performed Next Review Type Continued Stay Review
[2024-01-12] MEDS: LORazepam 2 MG/ML INJ 0.5 MG IV ×2 (14:20→22:05)
[2024-01-13] MEDS: METOCLOPRAMIDE 10 MG/2 ML INJ 5 MG IV ×3 (01:06→18:29)
[2024-01-13] MEDS: SODIUM CHLORIDE 0.9% 1,000 ML 100 ML IV ×2 (03:21→15:54)
[2024-01-13] MEDS: metroNIDAZOLE 500 MG/100 ML PIGGYBACK 100 MG IV ×3 (03:21→19:52)
[2024-01-13 04:15] VITALS: BP 138/85; PULSE 78; RESP 13; TEMP 37.4; O2SAT 98
[2024-01-13] MEDS: LORazepam 2 MG/ML INJ 0.5 MG IV ×4 (05:03→20:57)
--- NOTE | 2024-01-13 07:27 | PM.PN.1 ---
Subjective Subjective Interval history: Admitted with abdominal pain, some diarrhea and nausea. CT indicated possible colitis. S: She still has persistent nausea with dry heaves. They anti nausea medicine helps but her symptoms returned soon as it is beginning to wear off. She was some epigastric and right lower quadrant pain. No diarrhea or BM since she arrived. She did have diarrhea at home prior to arrival. She had been on Augmentin for 3 days for a dental infection. Exam Vital Signs (past 8 hours): - 01/13/24 04:15 Temperature 99.4 F Pulse Rate 78 Respiratory Rate 13 Blood Pressure 138/85 Pulse Oximetry 98 Oxygen Flow Rate 0 Oxygen Delivery Method Room Air Oxygen Flow Rate 0 Narrative Exam Narrative: NAD, alert and oriented. Fluent speech. Intermittent dry heaves. Lungs are clear, normal rate and effort. Heart is regular, no murmur gallop or rub. Abdomen is soft, non distended. Extremities are free of edema. Objective Labs 01/13/24 09:05 01/13/24 09:05 Labs: Laboratory Results - last 24 hr 01/12/24 06:46 Sodium 139 Potassium 3.8 Chloride 111 H Carbon Dioxide 21 L BUN 14 Creatinine 1.96 H Estimated GFR 33 L BUN/Creatinine Ratio 7.1 Glucose 116 H Lactate 0.5 L Calcium 7.8 L Total Bilirubin 0.5 AST 29 ALT 41 H Alkaline Phosphatase 57 Total Protein 6.3 Albumin 3.6 Globulin 2.7 Albumin/Globulin Ratio 1.3 PFSH Social History household members: children Smoking Status: Never smoker alcohol intake: former Assessment & Plan Assessment & Plan narrative: 1. Colitis, present on admission and active. 2. Recent tooth infection with 3 days of recent Augmentin. Present on admission and active. 3. Leukocytosis, present on admission and improving. Down to 11.7 from 14.7 at admission. 4. ALBERT, present on admission and improving. 2.12 to 1.44. 5. Hearing impaired, present on admission and stable. Plan: -Continue IV fluids for volume depletion, stool PCR when able. -monitor renal function. -continue antibiotics -symptomatic treatment of pain and nausea. TANA: 01/13 if feeling better. Time-Based Coding :: [TOTAL MINUTES] spent with patient and on the chart (including review of chart, obtaining history, exam, reviewing outside data, placing orders, documenting exam and treatment plan, and counseling patient) on [DATE]. Quality VTE Deep Vein Thrombosis/Pulmonary Embolism Present on Admission: No
[2024-01-13 08:00] VITALS: BP 129/61; PULSE 87; RESP 16; TEMP 36.8; O2SAT 99
[2024-01-13 09:16] LABS: Hematocrit 30.7 % (36-46); Hemoglobin 10.1 g/dL (12.0-16.0); Mean Corpuscular Hemoglobin 26.9 PG (26-34); Mean Corpuscular Volume 81.6 fL (80-100); Platelet Count 333 X10^3/uL (150-400); Red Blood Cell Count 3.76 X10^6/uL (4.0-5.2); White Blood Cell Count 11.7 X10^3/uL (4.5-11.0)
[2024-01-13 09:33] LABS: BUN Creatinine Ratio 6.9 (6-22); Blood Urea Nitrogen 10 mg/dL (7-17); Calcium 8.5 mg/dL (8.4-10.2); Carbon Dioxide 20 mmol/L (22-32); Chloride 114 mmol/L (98-107); Estimated Glomerular Filt Rate 47 mL/min (>60); Glucose 101 mg/dL (70-100); HEMOLYSIS < 15 (0-50); Sodium 138 mmol/L (137-145)
[2024-01-13] MEDS: CIPROFLOXACIN 400 MG/200 ML PIGGYBACK 200 MG IV ×2 (09:47→21:01)
--- NOTE | 2024-01-13 12:41 | CM.DPC ---
DCP Cont. Reviewed EMR and team rounds for status updates. Pt is not yet stable with continuing diarrhea and nausea. Plan is likely d/c on Sunday if her nausea can be controlled and bowels are stable.
[2024-01-13] MEDS: ONDANSETRON 4 MG/2 ML INJ IV ×2 (13:34→23:33)
[2024-01-13 16:00] VITALS: BP 146/91; PULSE 87; RESP 16; TEMP 36.4; O2SAT 99
[2024-01-13 20:00] VITALS: BP 139/88; PULSE 72; RESP 18; TEMP 37.1; O2SAT 96
[2024-01-14] MEDS: METOCLOPRAMIDE 10 MG/2 ML INJ 5 MG IV ×3 (00:28→20:08)
[2024-01-14 00:49] VITALS: BP 138/95; PULSE 71; RESP 18; O2SAT 97
--- NOTE | 2024-01-14 00:51 | EKG_ITS ---
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
[2024-01-14] MEDS: LORazepam 2 MG/ML INJ 0.5 MG IV ×4 (01:07→22:05)
--- NOTE | 2024-01-14 01:20 | PC.NURSE ---
Addendum entered by Ara Motta R.N. 01/14/24 01:53: Troponin WNL. IV Ativan given for nausea. Patient currently resting in bed w/ eyes closed, respirations even & unlabored. Original Note: [facility] shift lead: Patient continuing to have N/V. IV medications given with minimal relief. Bowel tones heard in all quadrants. Declined pain medicine. When rounding on patient, patient pointed at her nose. Gear Cutter brought into room for ASL. Patient reported chest pain and difficulty breathing. VSS (BP 138/95, HR 71. SpO2 97% on RA), lung sounds are CTA. Sat patient up in bed. Cont tele placed, EKG complete showing NSR, labs drawn. Notified MD Chin of findings. Awaiting troponin results. Placed patient NPO for tonight. Patient is oriented to call-light, plan of care ongoing.
[2024-01-14 01:28] LABS: Troponin I < 0.012 ng/mL (0.01-0.034)
[2024-01-14 04:00] VITALS: BP 143/91; PULSE 94; RESP 14; TEMP 37.1; O2SAT 98
[2024-01-14] MEDS: SODIUM CHLORIDE 0.9% 1,000 ML 100 ML IV ×2 (04:01→21:10)
[2024-01-14] MEDS: metroNIDAZOLE 500 MG/100 ML PIGGYBACK 100 MG IV ×3 (04:49→20:09)
[2024-01-14 04:52] LABS: Add Manual Diff / Slide Review NO; Basophils Absolute Auto 0 /uL (0-100); Basophils Percent Auto 0.3 % (0-2); Eosinophils Absolute Auto 100 /uL (0-450); Eosinophils Percent Auto 1.5 % (2-4); Hematocrit 28.5 % (36-46); Hemoglobin 9.5 g/dL (12.0-16.0); Lymphocytes Absolute Auto 1600 /uL (1100-4500); Lymphocytes Percent Auto 16.3 % (25-40); Mean Corpuscular HGB Conc 33.4 % (30-36); Mean Corpuscular Hemoglobin 27.1 PG (26-34); Mean Corpuscular Volume 81.3 fL (80-100); Monocytes Absolute Auto 1000 /uL (0-900); Monocytes Percent Auto 10.1 % (3-14); Neutrophils Absolute Auto 7000 /uL (1500-7000); Neutrophils Percent Auto 71.8 % (50-75); Platelet Count 291 X10^3/uL (150-400); Red Blood Cell Count 3.51 X10^6/uL (4.0-5.2); Red Cell Distribution Width 15.8 % (11.6-14.8); White Blood Cell Count 9.8 X10^3/uL (4.5-11.0)
[2024-01-14 05:11] LABS: Alanine Aminotransferase 24 IU/L (<35); Albumin 3.3 g/dL (3.5-5.0); Albumin Globulin Ratio 1.3 (1.0-2.8); Alkaline Phosphatase 59 U/L (38-126); Aspartate Aminotransferase 21 IU/L (14-36); BUN Creatinine Ratio 5.9 (6-22); Bilirubin Total 0.5 mg/dL (0.2-1.3); Blood Urea Nitrogen 7 mg/dL (7-17); Calcium 8.2 mg/dL (8.4-10.2); Carbon Dioxide 21 mmol/L (22-32); Chloride 114 mmol/L (98-107); Estimated Glomerular Filt Rate > 60 mL/min (>60); Globulin 2.6 g/dL (1.7-4.1); Glucose 105 mg/dL (70-100); HEMOLYSIS < 15 (0-50); Potassium 3.7 mmol/L (3.4-5.1); Sodium 140 mmol/L (137-145); Total Protein 5.9 g/dL (6.3-8.2)
--- NOTE | 2024-01-14 07:34 | P.PN_ITS ---
Subjective Subjective Interval history: Summary: She was admitted with nausea and vomiting after a brief illness with diarrhea. CT scan was suggestive of possible colitis. She has had persistent vomiting, but no diarrhea. Her WBC has been improving, on empiric antibiotics. S: Her vomiting is persistent. The medications help for a short time. She still has some epigastric abdominal pain. He was white count is improved. She would 1 small volume of soft stool this morning. Exam Vital Signs (past 8 hours): - 01/14/24 00:49 01/14/24 04:00 Temperature 98.7 F Pulse Rate 71 94 H Respiratory Rate 18 14 Blood Pressure 138/95 H 143/91 H Pulse Oximetry 97 98 Oxygen Flow Rate 0 0 Oxygen Delivery Method Room Air Oxygen Flow Rate 0 Narrative Exam Narrative: NAD, alert and oriented. Fluent speech. Lungs are clear, normal rate and effort. Heart is regular, no murmur gallop or rub. Abdomen is soft, non distended. Extremities are free of edema. Objective Labs 01/14/24 04:35 01/14/24 04:35 Labs: Laboratory Results - last 24 hr 01/13/24 01/14/24 01/14/24 09:05 00:47 04:35 WBC 11.7 H 9.8 RBC 3.76 L 3.51 L Hgb 10.1 L 9.5 L Hct 30.7 L 28.5 L MCV 81.6 81.3 MCH 26.9 27.1 MCHC 33.0 33.4 RDW 16.0 H 15.8 H Plt Count 333 291 Neut % (Auto) 71.8 Lymph % (Auto) 16.3 L [place] % (Auto) 10.1 Eos % (Auto) 1.5 L Baso % (Auto) 0.3 Neut # (Auto) 7000 Lymph # (Auto) 1600 [place] # (Auto) 1000 H Eos # (Auto) 100 Baso # (Auto) 0 Sodium 138 140 Potassium 4.0 3.7 Chloride 114 H 114 H Carbon Dioxide 20 L 21 L BUN 10 7 Creatinine 1.44 H 1.18 H Estimated GFR 47 L > 60 BUN/Creatinine Ratio 6.9 5.9 L Glucose 101 H 105 H Calcium 8.5 8.2 L Total Bilirubin 0.5 AST 21 ALT 24 Alkaline Phosphatase 59 Troponin I < 0.012 Total Protein 5.9 L Albumin 3.3 L Globulin 2.6 Albumin/Globulin Ratio 1.3 [facility] Social History household members: children Smoking Status: Never smoker alcohol intake: former Assessment & Plan Assessment & Plan narrative: 1. Colitis, present on admission and active. 2. Recent tooth infection with 3 days of recent Augmentin. Present on admission and stable. 3. Leukocytosis, present on admission and improving. Normal today. 4. ALBERT, present on admission and improving. 2.12 to 1.44. 5. Hearing impaired, present on admission and stable. Plan: -Continue IV fluids for volume depletion, stool PCR when able. -monitor renal function. -continue antibiotics -symptomatic treatment of pain and nausea. -differential includes PUD, ulcer, colitis, or biliary tract disease. We will repeat CT scan to review for interval changes. The 1st scan was equivocal for intra-abdominal findings. She was not really improved with her persistent vomiting for 48 hours. -add PPI IV b.i.d.. TANA: 01/14 if feeling better. Time-Based Coding :: [TOTAL MINUTES] spent with patient and on the chart (including review of chart, obtaining history, exam, reviewing outside data, placing orders, documenting exam and treatment plan, and counseling patient) on [DATE]. Quality VTE Deep Vein Thrombosis/Pulmonary Embolism Present on Admission: No
[2024-01-14 08:00] VITALS: BP 162/92; PULSE 55; RESP 16; TEMP 36.8; O2SAT 99
[2024-01-14] MEDS: CIPROFLOXACIN 400 MG/200 ML PIGGYBACK 200 MG IV ×2 (09:03→21:11)
--- NOTE | 2024-01-14 11:08 | DI.CT.S_ITS ---
PROCEDURE: CT ABDOMEN PELVIS W CON INDICATIONS: Persistent abdomen pain and vomiting TECHNIQUE: After the administration of intravenous contrast, axial sections acquired from the lung bases to the pubic symphysis. Coronal and sagittal reformats were performed. For radiation dose reduction, the following was used: automated exposure control, adjustment of mA and/or kV according to patient size. COMPARISON: [facility], CT, CT ABDOMEN PELVIS WO [facility], 01/11/2024, 20:53. FINDINGS: Image quality: Diagnostic. Lower Chest: Small bilateral pleural effusions with associated compressive atelectasis. Small hiatal hernia. Heart size is normal. Trace pericardial effusion, likely physiologic. ABDOMEN: Liver: No solid mass. Gallbladder: Mild gallbladder distension. New pericholecystic fluid. No definite wall thickening. No radiopaque densities in the gallbladder to suggest gallstones. Biliary ducts: No biliary dilation. Pancreas: No ductal dilation. No peripancreatic inflammation. Spleen: Size is within normal limits. Adrenal Glands: No adrenal nodules. Kidneys and Ureters: No hydronephrosis. No solid renal masses. There is heterogeneous parenchymal enhancement involving the bilateral kidneys, slightly more pronounced in the right kidney as well as more pronounced in the upper poles bilaterally. No perinephric fluid collection seen. Bilateral ureters are normal in course and caliber. Stomach and Bowel: Normal colonic caliber, without significant wall thickening. Redemonstration of fluid-filled proximal colon. No wall thickening. Normal appendix. No evidence for small bowel obstruction or associated inflammatory changes. Peritoneum: Small volume pelvic ascites without peritoneal enhancement. No organized fluid collection seen. No free air. Ventral Wall: There is a fat-containing umbilical hernia without acute inflammation. Abdominal Nodes: No retroperitoneal or mesenteric adenopathy by size criteria. Vessels: Aorta and inferior vena cava are normal in size. PELVIS: Pelvic Organs: Redemonstration of bilateral cystic structures in the bilateral ovaries compatible with ovarian cyst. Findings are again larger on the left. Measures approximately 3.9 cm in maximum dimension. Bladder: No bladder wall thickening, accounting for underdistention. No significant perivesicular inflammation. Pelvic Nodes: No enlarged lymph nodes. Miscellaneous: No inguinal hernias are seen. Bones: No aggressive osseous abnormality. Visualized osseous structures appear intact without acute fracture or focal destructive lesion. No acute compression fractures of the imaged spine. IMPRESSION: Heterogeneous enhancement of the bilateral kidneys suspicious for pyelonephritis. No evidence for perinephric fluid collection or abscess. Recommend clinical and laboratory correlation. Visualized urinary bladder appears unremarkable for degree of distension. Mild gallbladder distension with new pericholecystic fluid. No CT evidence for cholelithiasis. Findings may represent reactive cholecystitis given adjacent changes of the right kidney. Consider further evaluation with ultrasound if clinically needed. Persistent fluid-filled proximal colon without wall thickening or pericolonic stranding. Findings are nonspecific but may be seen with colitis. Persistent bilateral ovarian cystic lesions likely representing ovarian cysts. If there are localizing symptoms, further evaluation with pelvic ultrasound can be considered. Dictated by: Samuel Coley M.D. on 01/14/2024 at 12:53 Approved by: Samuel Coley M.D. on 01/14/2024 at 13:02
--- NOTE | 2024-01-14 11:53 | CM.DPNOTE ---
DCP Note [employer] reviewed EMR. Per hospitalist in morning rounds/PN, pt remains nauseated today, anticipate dc tomorrow pending improvement. Per RN, likely stopping ice chips for now in case those were also impacting nausea. No new CM/DCP needs identified. P: Anticipate dc home with family support when medically stable. Transport with family vs Medicaid transport? CM team will continue to follow as needed. CM team will follow if pt needs work excuse letter. ISABELL Linares
[2024-01-14 12:00] VITALS: BP 164/91; PULSE 53; RESP 13; TEMP 36.8; O2SAT 98
[2024-01-14] MEDS: PANTOPRAZOLE 40 MG VIAL IV ×2 (12:47→20:09)
--- NOTE | 2024-01-14 13:57 | DI.US.S_ITS ---
PROCEDURE: US ABDOMEN LIMITED INDICATIONS: RUQ US, abnormal GB on CT and persistent vomiting and pain TECHNIQUE: Real-time scanning was performed of the abdominal and retroperitoneal organs, with image documentation. COMPARISON: None. FINDINGS: Liver: Liver is normal in size and homogeneous in echotexture. Gallbladder: No gallstones or gallbladder sludge. There is mild wall thickening near the gallbladder neck measuring up to 3 mm in thickness. Small amount of complex pericholecystic fluid. There is an abnormal sonographic Mccoy sign. Biliary ducts: Intrahepatic bile ducts are non-dilated. Extrahepatic bile duct caliber measures 3 mm. Normal is 6-7 mm or less in diameter, or 10 mm or less post-cholecystectomy. Pancreas: Visualized portions of the pancreas are sonographically normal. Miscellaneous: No free abdominal fluid. IMPRESSION: Mild gallbladder wall thickening near the gallbladder neck with pericholecystic fluid and abnormal sonographic Mccoy sign. Findings are suggestive of acute cholecystitis. No evidence for cholelithiasis. Dictated by: Samuel Cloey M.D. on 01/14/2024 at 16:39 Approved by: Samuel Coley M.D. on 01/14/2024 at 16:41
[2024-01-14 16:00] VITALS: BP 177/97; PULSE 49; RESP 13; TEMP 36.8; O2SAT 97
--- NOTE | 2024-01-14 16:18 | EKG_ITS ---
[place] [id number] [place] [id number] Test Date: 2024-01-14 Pat Name: Lupe Sr Department: [facility] Room: 209 Gender: Female [employer]: NENA : 1985 Requested By: Order Number: [id number] Reading MD: Sukhi Wilkins MD Measurements Intervals [place] Rate: 54 P: -20 WA: 138 QRS: 66 QRSD: 82 T: 57 QT: 444 QTc: 421 Interpretive Statements Sinus bradycardia with premature atrial complexes Electronically Signed On 01-14-2024 17:02:52 PDT by Sukhi Wilkins MD
[2024-01-14 19:10] LABS: Adenovirus F 40/41 Not Detected (Not Detect); Astrovirus Not Detected (Not Detect); Campylobacter Not Detected (Not Detect); Clostridium difficile toxin AB Not Detected (Not Detect); Cryptosporidium Not Detected (Not Detect); Cyclospora cayetanensis Not Detected (Not Detect); Entamoeba histolytica Not Detected (Not Detect); Enteroaggregative E.coli Not Detected (Not Detect); Enteropathogenic E.coli Not Detected (Not Detect); Enterotoxigenic E.coli It/st Not Detected (Not Detect); Giardia lamblia Not Detected (Not Detect); Norovirus GI/GII Not Detected (Not Detect); Plesiomonsa shigelloides Not Detected (Not Detect); Rotavirus A Not Detected (Not Detect); Salmonella Not Detected (Not Detect); Sapovirus Not Detected (Not Detect); Shiga-like toxin-prod E.coli Not Detected (Not Detect); Shigella/Enteroinvasive E.coli Not Detected (Not Detect); Vibrio Not Detected (Not Detect); Vibrio cholerae Not Detected (Not Detect); Yersinia enterocolitica Not Detected (Not Detect)
[2024-01-14 20:00] VITALS: BP 130/74; PULSE 64; RESP 18; TEMP 36.4; O2SAT 99
[2024-01-14] MEDS: ACETAMINOPHEN 325 MG TABLET 650 MG PO (21:18)
[2024-01-15] VITALS: BP 143/79; PULSE 45; RESP 19; TEMP 36.4; O2SAT 95
--- NOTE | 2024-01-15 00:01 | PC.NURSE ---
Sinus chris on telemetry with lowest HR of 39. Pt sleeping asymptomatic. VS taken and stable. Notified Dr. Chin. No new orders at this time. Will monitor, call light in reach.
[2024-01-15] MEDS: ONDANSETRON 4 MG/2 ML INJ IV ×2 (02:24→12:45)
[2024-01-15] MEDS: HYDROMORPHONE 0.5 MG INJ IV (02:24)
[2024-01-15] MEDS: metroNIDAZOLE 500 MG/100 ML PIGGYBACK 100 MG IV ×3 (04:11→21:40)
[2024-01-15] MEDS: LORazepam 2 MG/ML INJ 0.5 MG IV ×4 (04:45→22:11)
[2024-01-15 05:13] VITALS: BP 128/86; PULSE 84; RESP 18; TEMP 36.5; O2SAT 96
[2024-01-15] MEDS: METOCLOPRAMIDE 10 MG/2 ML INJ 5 MG IV ×3 (07:42→21:40)
--- NOTE | 2024-01-15 08:03 | PM.PN.1 ---
Subjective Subjective Interval history: S: Improved abdominal pain, I am going nausea and vomiting. Exam Vital Signs (past 8 hours): - 01/16/24 04:00 Temperature 98.8 F Pulse Rate 74 Respiratory Rate 20 Blood Pressure 140/85 Pulse Oximetry 94 Oxygen Flow Rate 0 Oxygen Delivery Method Room Air Oxygen Flow Rate 0 Narrative Exam Narrative: NAD, alert and oriented. Fluent speech. Lungs are clear, normal rate and effort. Heart is regular, no murmur gallop or rub. Abdomen is soft, non distended. Extremities are free of edema. Objective Imaging Multiple studies:: Radiologist's impression: Abdomen pelvis CT: IMPRESSION: Heterogeneous enhancement of the bilateral kidneys suspicious for pyelonephritis. No evidence for perinephric fluid collection or abscess. Recommend clinical and laboratory correlation. Visualized urinary bladder appears unremarkable for degree of distension. Mild gallbladder distension with new pericholecystic fluid. No CT evidence for cholelithiasis. Findings may represent reactive cholecystitis given adjacent changes of the right kidney. Consider further evaluation with ultrasound if clinically needed. Persistent fluid-filled proximal colon without wall thickening or pericolonic stranding. Findings are nonspecific but may be seen with colitis. Persistent bilateral ovarian cystic lesions likely representing ovarian cysts. If there are localizing symptoms, further evaluation with pelvic ultrasound can be considered. Right upper quadrant ultrasound: Mild gallbladder wall thickening near the gallbladder neck with pericholecystic fluid and abnormal sonographic Mccoy sign. Findings are suggestive of acute cholecystitis. No evidence for cholelithiasis. HIDA scan: IMPRESSION: Normal gallbladder ejection fraction. Labs 01/14/24 04:35 01/14/24 04:35 COUNTS INCLUDE 234 BEDS AT THE [facility] Social History household members: children Smoking Status: Never smoker alcohol intake: former Assessment & Plan Assessment & Plan narrative: 1. Colitis, present on admission and active. 2. Recent tooth infection with 3 days of recent Augmentin. Present on admission and stable. 3. Leukocytosis, present on admission and improving. Normal today. 4. ALBERT, present on admission and improving. 2.12 to 1.44. 5. Hearing impaired, present on admission and stable. PLAN: Continued symptomatic treatment. Further investigation with CT scan which indicate possible cholecystitis followed by surgical consult after abnormal ultrasound and HIDA scan. Time-Based Coding :: [TOTAL MINUTES] spent with patient and on the chart (including review of chart, obtaining history, exam, reviewing outside data, placing orders, documenting exam and treatment plan, and counseling patient) on [DATE]. Quality VTE Deep Vein Thrombosis/Pulmonary Embolism Present on Admission: No
[2024-01-15] MEDS: CIPROFLOXACIN 400 MG/200 ML PIGGYBACK 200 MG IV ×2 (08:34→20:27)
[2024-01-15] MEDS: PANTOPRAZOLE 40 MG VIAL IV ×2 (08:34→20:27)
[2024-01-15 09:00] VITALS: BP 160/98; PULSE 78; RESP 13; TEMP 37.4; O2SAT 93
[2024-01-15] MEDS: SODIUM CHLORIDE 0.9% 1,000 ML 100 ML IV (10:10)
--- NOTE | 2024-01-15 10:27 | DI.NM.S_ITS ---
PROCEDURE: NM HIDA WITH CCK PHARMACEUTICAL: 5.1 mCi Tc-99m mebrofenin IV; 1.3 mcg CCK IV. INDICATIONS: RUQ pain TECHNIQUE: Following intravenous administration of Tc-99m mebrofenin, sequential anterior abdominal images were obtained. To evaluate the contractile response of the gallbladder in response to Cholecystokinin (CCK), sincalide (0.02 ?g/kg) was administered by slow intravenous infusion approximately 60 minutes after the administration of the radiopharmaceutical. Sequential imaging was continued for 30 minutes after the start of CCK infusion. Gallbladder ejection fraction was calculated. COMPARISON: [facility], ABDOMEN LIMITED, 01/14/2024, 16:02. FINDINGS: Biliary scan: There is normal tracer uptake and excretion by the liver. There is normal visualization of the intrahepatic ducts, common bile duct, and gallbladder. There is normal tracer transit into the duodenum. CCK stimulation: There is normal contractile response of the gallbladder to CCK infusion. The calculated gallbladder ejection fraction is 88%; normal values are above 35%. It has been shown that any patient abdominal pain after CCK administration is related to the rate of CCK injection, rather than to any underlying gallbladder disease (Clinical Nuclear Medicine 2012; 37: 63-70. Journal of Nuclear Medicine 2014; 55: 1-9). IMPRESSION: Normal gallbladder ejection fraction. Dictated by: Socrates Vang M.D. on 01/15/2024 at 12:09 Approved by: Socrates Vang M.D. on 01/15/2024 at 12:10
--- NOTE | 2024-01-15 10:40 | PM.CN ---
History of Present Illness Consult details Date Patient Seen: 01/15/24 Time Patient Seen: 10:40 Chief complaint: abd pain Narrative: SURGICAL CONSULTATION Date of Admission: 01/12/24 Date of Consultation: 01/15/24 PCP: Doctor Adri MD Thank you Dr. GARCIA very much for your consultation, it's always appreciated. I had the privilege today to see your patient Lupe Sr. Chief Complaint / History of Present Illness: Lupe Sr is a very pleasant 39 yo F who presents with pain in the abdomen, and nausea and diarrhea, workup revealed colitis, but she has not improved, and US of her GB revealed pericholecystic fluid.. Will check HIDA scan with EF, NOW, to rule OUT cholecystitis. Review of Systems: Constitutional: Negative for fever, chills, diaphoresis, appetite change and fatigue. HENT: Negative for sore throat, trouble swallowing and voice change. Respiratory: Negative for cough, positive for shortness of breath no wheezing. Cardiovascular: Negative for chest pain positive for SOB with one flight of stairs exertion, no pitting LE edema. Gastrointestinal: Positive for RUQ mild pain, nausea, vomiting, no abdominal distention, constipation, blood in stool, anal bleeding or rectal pain. Musculoskeletal: Negative for joint swelling and arthralgias. Skin: Warm and dry, well perfused. Neurological: Negative for seizures, syncope, speech difficulty and weakness. Hematological/Lymphatic: Negative for adenopathy. No history of DVT/PE. Does not bruise/bleed easily. Psychiatric/Behavioral: Negative for agitation. All others reviewed and negative. Physical Exam: General appearance: Pt Alert and oriented, in no apparent acute distress. HEENT: REMBERTO, Conjunctiva clear. EOMI, No JVDs, Bruits, Megalies: neither thyroid nor lymph nodes. Lungs: Clear to auscultation bilaterally. Heart: Regular rate and rhythm, S1, S2 normal, no murmur, rub or gallop. Abdomen: Mildly tender RUQ NEGATIVE Mccoy sign. Non distended. Positive bowel sounds. No hernias noted, no masses palpable. Extremities: Warm, well perfused, no cyanosis or edema. Skin: Skin color, texture, turgor normal. Neurologic: Grossly normal, Cranial nerves from II to XII intact, Deep tendon reflexes normal. Lymph nodes: No palpable LNs, Cervical, groins, abdominal. Musculoskeletal: Bilateral Upper and lower extremities ROM within normal limits. Radiologic / Imaging / TESTING See reports of CT and US. Assessment & plan: Lupe Sr is a very pleasant 39 Female presenting with colitis, not improving, and mild pericholecystic gall bladder fluid, will do HIDA scan with EF, to RULE OUT acute Acalcular cholecystitis, and will follow. Continue NPO/Bowel rest, IV Fluids, Pain control, Nausea control, IV Antibiotics. Thank you doctor very much for your consultation and for the opportunity to take care of Mrs Sr with you, I'll follow along with you and I'll update you on any new events in her care. Meds Home Medications and Allergies Home Medications Medication Instructions Recorded Confirmed Type dextroamphetamine-amphetamine ER 1 cap PO QAM 09/18/23 01/12/24 History 20 mg 24hr capsule,extend release ipratropium bromide 21 mcg (0.03 2 spray intranasal BID PRN 09/18/23 01/12/24 Rx %) nasal spray Nasal/sinus congestion #30 mL topiramate 25 mg tablet 25 mg PO BID 09/18/23 01/12/24 History amoxicillin 875 mg-potassium 1 tab PO Q12H dental infection 10 01/07/24 01/12/24 Rx clavulanate 125 mg tablet days #20 tabs amoxicillin 875 mg-potassium 1 tab PO BID for 3 additional days 01/12/24 Rx clavulanate 125 mg tablet #6 tabs Allergies Allergy/AdvReac Type Severity Reaction Status Date / Time hydrocodone AdvReac Unknown vomiting, Verified 01/13/24 08:24 abd pain Exam Vital Signs (past 8 hours): - 01/15/24 05:13 01/15/24 09:00 Temperature 97.7 F 99.4 F Pulse Rate 84 78 Respiratory Rate 18 13 Blood Pressure 128/86 160/98 H Pulse Oximetry 96 87 L Oxygen Flow Rate 0 Oxygen Delivery Method Room Air Oxygen Flow Rate 0 Objective Labs 01/14/24 04:35 01/14/24 04:35 Labs: Laboratory Results - last 24 hr 01/14/24 17:42 Stl C. cayetanensis PCR Not detected Stool Rotavirus (PCR) Not detected Stool Adenovirus (PCR) Not detected Stool Astrovirus (PCR) Not detected Stool Cryptosporidium PCR Not detected Stl E.coli Shiga Tox PCR Not detected St Sh/Enteroin Ecoli PCR Not detected Stl Enterotoxigenic E PCR Not detected Stool EPEC (PCR) Not detected Stl E. histolytica PCR Not detected Stool Giardia Lamblia PCR Not detected Stool Sapovirus (PCR) Not detected Stl P. shigelloides PCR Not detected St Y.enterocolitica PCR Not detected Stool Vibrio (PCR) Not detected Stl Vibrio cholerae PCR Not detected Stl Enteroaggr Ecoli PCR Not detected Stl Norovirus GI/GII PCR Not detected Campylobacter (PCR) Not detected C. difficile Tox (PCR) Not detected Salmonella (PCR) Not detected PFSH Social History household members: children Tobacco & Substance Use Smoking Status: Never smoker alcohol intake: former Assessment & Plan Time-Based Coding :: [TOTAL MINUTES] spent with patient and on the chart (including review of chart, obtaining history, exam, reviewing outside data, placing orders, documenting exam and treatment plan, and counseling patient) on [DATE].
--- NOTE | 2024-01-15 11:46 | CM.DPNOTE ---
DCP NOte [employer] reviewed EMR. Per hospitalist in morning rounds, pt not improving, TANA unknown at this time. Per surgeon note, want to do new scans to rule out cholecystitis. continue NPO, bowel rest, and IV antibiotics. P: Anticipate dc home with family support when medically stable. Transport with family vs Medicaid transport? CM team will continue to follow as needed. CM team will follow if pt needs work excuse letter. ISABELL Linares
[2024-01-15 12:00] VITALS: BP 155/90; PULSE 51; RESP 14; TEMP 36.8; O2SAT 95
[2024-01-15 17:00] VITALS: BP 156/66; PULSE 80; RESP 14; TEMP 37.3; O2SAT 94
[2024-01-15 20:32] VITALS: BP 122/68; PULSE 69; RESP 18; TEMP 36.6; O2SAT 96
[2024-01-15] MEDS: ACETAMINOPHEN 325 MG TABLET 650 MG PO (23:56)
[2024-01-16] VITALS (22 sets, daily range): BP systolic 130–183; BP diastolic 74–107; PULSE 49–95; RESP 12–20; TEMP 36.6–37.6; O2SAT 91–98
--- NOTE | 2024-01-16 | PATH_ITS ---
[facility] Accession Number: [id number] No. of containers..01 Tissue . 01 Material submitted: . gastrointestinal site - BODY OF STOMACH . 01 Clinical history: . R/O H.PYLORI . 01 Diagnosis: STOMACH, BODY, BIOPSIES: Body-type mucosa with no significant diagnostic abnormality. Negative for Helicobacter by immunohistochemistry. Negative for intestinal metaplasia. Negative for dysplasia and malignancy. V 01/21/2024 0842 Local . 01 Electronically signed: . Lorie Casarez MD, Pathologist NPI- [id number] . 01 Gross description: . Received in formalin with two patient identifiers and body of stomach, are two vogel soft tissue fragments, both measuring 0.3 cm in greatest dimension. Submitted in A1. ([id number]) /MRV 01/17/2024 0903 Local . 01 Microscopic: . A. An immunohistochemical stain was performed to evaluate for Helicobacter organisms and is negative. The control stain showed appropriate reactivity. . * This test was developed and its performance characteristics determined by [facility]. It has not been cleared or approved by the U.S. Food and Drug Administration. The FDA has determined that such clearance or approval is not necessary. This test is used for clinical purposes. It should not be regarded as investigational or for research. . 01 Pathologist provided ICD-10: R10.9 . 01 CPT . 987810, Y63348 Specimen Comment: A courtesy copy of this report has been sent to [facility] Performed at: [address] [address], [place], [place] [id number] MD Lucas Cristina MD Phone: [phone]
[2024-01-16] MEDS: ONDANSETRON 4 MG/2 ML INJ IV ×2 (00:57→12:27)
[2024-01-16] MEDS: SODIUM CHLORIDE 0.9% 1,000 ML 100 ML IV ×2 (00:59→18:09)
[2024-01-16] MEDS: LORazepam 2 MG/ML INJ 0.5 MG IV ×3 (02:51→18:50)
[2024-01-16] MEDS: TOPIRAMATE 25 MG TABLET PO (05:28)
[2024-01-16] MEDS: metroNIDAZOLE 500 MG/100 ML PIGGYBACK 100 MG IV ×3 (05:28→19:52)
[2024-01-16] MEDS: PROMETHAZINE 25 MG SUPP PR (05:32)
[2024-01-16] MEDS: SUMAtriptan 25 MG TABLET 100 MG PO ×2 (06:33→14:48)
[2024-01-16 09:10] LABS: Add Manual Diff / Slide Review NO; Basophils Absolute Auto 100 /uL (0-100); Basophils Percent Auto 0.5 % (0-2); Eosinophils Absolute Auto 100 /uL (0-450); Eosinophils Percent Auto 0.6 % (2-4); Hematocrit 29.3 % (36-46); Hemoglobin 9.9 g/dL (12.0-16.0); Lymphocytes Absolute Auto 1600 /uL (1100-4500); Mean Corpuscular HGB Conc 33.8 % (30-36); Mean Corpuscular Hemoglobin 27.3 PG (26-34); Mean Corpuscular Volume 80.8 fL (80-100); Monocytes Absolute Auto 1200 /uL (0-900); Monocytes Percent Auto 8.2 % (3-14); Neutrophils Absolute Auto 11300 /uL (1500-7000); Neutrophils Percent Auto 79.7 % (50-75); Platelet Count 316 X10^3/uL (150-400); Red Blood Cell Count 3.63 X10^6/uL (4.0-5.2); Red Cell Distribution Width 16.2 % (11.6-14.8); White Blood Cell Count 14.2 X10^3/uL (4.5-11.0)
[2024-01-16] MEDS: CIPROFLOXACIN 400 MG/200 ML PIGGYBACK 200 MG IV ×2 (09:18→21:55)
[2024-01-16] MEDS: PANTOPRAZOLE 40 MG VIAL IV ×2 (09:18→21:55)
[2024-01-16] MEDS: METOCLOPRAMIDE 10 MG/2 ML INJ 5 MG IV ×3 (09:18→21:55)
[2024-01-16 09:27] LABS: Alanine Aminotransferase 38 IU/L (<35); Albumin 3.2 g/dL (3.5-5.0); Albumin Globulin Ratio 1.1 (1.0-2.8); Alkaline Phosphatase 58 U/L (38-126); Aspartate Aminotransferase 38 IU/L (14-36); BUN Creatinine Ratio 6.2 (6-22); Bilirubin Total 0.3 mg/dL (0.2-1.3); Blood Urea Nitrogen 5 mg/dL (7-17); Calcium 8.5 mg/dL (8.4-10.2); Carbon Dioxide 23 mmol/L (22-32); Chloride 108 mmol/L (98-107); Estimated Glomerular Filt Rate > 60 mL/min (>60); Glucose 117 mg/dL (70-100); HEMOLYSIS < 15 (0-50); Lactate (Lactic Acid) 1.1 mmol/L (0.7-2.1); Lipase 30 U/L (23-300); Potassium 3.3 mmol/L (3.4-5.1); Sodium 137 mmol/L (137-145); Total Protein 6.2 g/dL (6.3-8.2)
[2024-01-16] MEDS: HYDRALAZINE 20 MG/ML VIAL 10 MG IV ×2 (10:05→17:22)
--- NOTE | 2024-01-16 10:45 | CM.DPNOTE ---
Addendum entered by ISABELL Linares 01/16/24 14:54: EGD foud severe gastritis. TANA maybe Thurs 01/16 if pt can keep down fluids? CM team will continue to follow closely SL Original Note: DCP note [employer] reviewed EMR. Per hospitalist in morning rounds, pt keeps having nausea/vomiting. Plan is for endoscopy today to attempt to figure out reasoning. TANA unknown at this time. P: Anticipate dc home with family support when medically stable. Transport with family vs Medicaid transport? CM team will continue to follow as needed. CM team will follow if pt needs work excuse letter. ISABELL Linares
--- NOTE | 2024-01-16 11:44 | PM.PN.1 ---
Subjective Subjective Date Patient Seen: 01/16/24 Time Patient Seen: 11:44 Exam Vital Signs (past 8 hours): - 01/16/24 04:00 01/16/24 10:05 01/16/24 11:00 Temperature 98.8 F Pulse Rate 74 Respiratory Rate 20 Blood Pressure 140/85 176/103 H 151/89 H Pulse Oximetry 94 Oxygen Flow Rate 0 Oxygen Delivery Method Room Air Oxygen Flow Rate 0 Objective Labs 01/16/24 08:25 01/16/24 08:25 Labs: Laboratory Results - last 24 hr 01/16/24 08:25 WBC 14.2 H RBC 3.63 L Hgb 9.9 L Hct 29.3 L MCV 80.8 MCH 27.3 MCHC 33.8 RDW 16.2 H Plt Count 316 Neut % (Auto) 79.7 H Lymph % (Auto) 11.0 L [place] % (Auto) 8.2 Eos % (Auto) 0.6 L Baso % (Auto) 0.5 Neut # (Auto) 22130 H Lymph # (Auto) 1600 [place] # (Auto) 1200 H Eos # (Auto) 100 Baso # (Auto) 100 Sodium 137 Potassium 3.3 L Chloride 108 H Carbon Dioxide 23 BUN 5 L Creatinine 0.81 Estimated GFR > 60 BUN/Creatinine Ratio 6.2 Glucose 117 H Lactate 1.1 Calcium 8.5 Total Bilirubin 0.3 AST 38 H ALT 38 H Alkaline Phosphatase 58 Total Protein 6.2 L Albumin 3.2 L Globulin 3.0 Albumin/Globulin Ratio 1.1 Lipase 30 D [facility] Social History household members: children Smoking Status: Never smoker alcohol intake: former Assessment & Plan Assessment and plan (1) Nausea & vomiting: Status: Acute Plan Pt HIDA yesterday was NEGATIVE for acute acalculous cholecystitis, still nauseated and NOT tolerating PO intake.. Asked by hospitalist to do EGD, Will do it now.. doupt that I will find any significant abnormality to explain her symptoms.. but may be, will do it now, colitis, when it will improve hopefully she will recover and tolerate PO intake.. Zofran 4 mg helped but not 100%, I ordered 8 mg IV q 6 hrs prn, hopefully it will control her nausea well. Time-Based Coding :: [TOTAL MINUTES] spent with patient and on the chart (including review of chart, obtaining history, exam, reviewing outside data, placing orders, documenting exam and treatment plan, and counseling patient) on [DATE]. Quality VTE Deep Vein Thrombosis/Pulmonary Embolism Present on Admission: No
--- NOTE | 2024-01-16 11:56 | P.OP.EGD_ITS ---
Operative Date/Time/Diagnoses Date of procedure: 01/16/24 Pre-op diagnosis: Intractable nausea and vomiting.. Procedure & Clinicians Surgeon: Jenny Wahl Procedure Notes Procedure in detail: OPERATIVE / PROCEDURE NOTE Lupe Sr, 1985, 39,Female,CSN: [id number] PREOPERATIVE DIAGNOSES: 1. Intractable nausea and vomiting POSTOPERATIVE DIAGNOSES: 1. Same + gastritis stigmata, NO ulcers but several severe gastritis. FINDINGS: Esophagogastroduodenoscopy performed all the way through the third portion of the duodenum. Z-line was at 35 cm from the greater incisors level. No GERD stigmata noted. No obvious hiatal hernia. POSITIVE major gastritis. No peptic ulcer disease. No biliary reflux. PROCEDURE DONE: Esophagogastroduodenoscopy all the way to the third portion of the duodenum. Biopsies x 2 to r/o H-pylori. ASSISTANT PROFESSOR OF BUSINESS: None. ANESTHESIA: MAC per anesthesia. SPECIMEN: Body of the stomach Biopsies x 2 to r/o H-pylori. ESTIMATED BLOOD LOSS: None. COMPLICATIONS: None. CONDITION: Stable to the PACU. OPERATIVE DESCRIPTION: After appropriate informed consent was signed by the patient knowing all of the risks, benefits, potential complications, and possible alternatives of the procedure, the patient was properly identified in the holding area. She was taken to the GI suite and after institution of gentle IV sedation, she was placed on his left lateral decubitus position in reverse Trendelenburg position. The EGD Olympus scope was placed into her mouth and under direct visualization was advanced. The vocal cords were identified. No stigmata of reflux laryngitis noted. The esophagus was intubated. Z-line was at 35 cm from the superior incisors level. No stigmata of reflux esophagitis. No changes suspicious of Barretts esophagitis noted. The stomach was intubated. Healthy looking mucosa was identified for the most of the stomach BUT SEVERE GASTRITIS WERE NOTED IN 2 DIFFERENT AREAS.. No ulcers. JUST severe gastritis. The pylorus was intubated all the way to the third portion of the duodenum. No postpyloric abnormalities noted including the ampulla and periampullary regions. The scope was retracted back into the stomach and retroflexed. No evidence of hiatal hernia identified. No biliary reflux was noted. Mucosal biopsies x 2 were taken from the body of the stomach mucosa and sent to pathology to r/o H-pylori. The stomach was decompressed and the scope was retracted out uneventfully. The patient tolerated the procedure well without any complication. She takes proton pump inhibitors here in the hospital and she will need to continue x 4-6 wks, along with H2 deshawn, and Carafate, IF H-pylori will come back positive she will need full treatment x 2 wks, I will let her hospitalist know and follow. The patient tolerated the procedure well without any complications and was sent to PACU in stable condition. Findings: gastritis Specimen(s): other Complications: none Post-procedure Recommendations: No ASA/NSAIDs, Prescription for, Start medication(s), Continue medication(s) and Will call with biopsy results Follow up: as needed Disposition: PACU
[2024-01-16] MEDS: LACTATED RINGERS 1,000 ML 42 ML IV (12:32)
[2024-01-16] MEDS: FAMOTIDINE 20 MG/2 ML VIAL IV ×2 (13:31→21:55)
--- NOTE | 2024-01-16 13:47 | PM.PN.1 ---
Subjective Subjective Interval history: She underwent EGD this morning, this revealed severe gastritis. Her nausea slowly improving but she still has some right upper quadrant abdominal pain. HIDA was negative, right upper quadrant ultrasound was notable for gallbladder wall thickening and positive Mccoy sign. Subjective: less nausea. Less pain. Still in the right upper quadrant. No diarrhea or bowel movement. Exam Vital Signs (past 8 hours): - 01/16/24 08:00 01/16/24 10:05 01/16/24 11:00 Temperature 98.7 F Pulse Rate 49 L Respiratory Rate 16 Blood Pressure 172/103 H 176/103 H 151/89 H Pulse Oximetry 91 Oxygen Delivery Method 01/16/24 12:32 01/16/24 12:51 01/16/24 12:53 Temperature 99.1 F 98.4 F Pulse Rate 64 67 61 Respiratory Rate 16 20 18 Blood Pressure 163/89 H 178/102 H 164/102 H Pulse Oximetry 94 95 92 Oxygen Delivery Method Room Air Room Air Room Air 01/16/24 12:58 01/16/24 13:05 01/16/24 13:15 Temperature 98 F Pulse Rate 60 63 61 Respiratory Rate 20 14 13 Blood Pressure 158/94 H 165/90 H 138/88 Pulse Oximetry 94 97 96 Oxygen Delivery Method Room Air Room Air Room Air Oxygen Delivery Method Room Air Oxygen Flow Rate 0 Narrative Exam Narrative: NAD, alert and oriented. Fluent speech. Lungs are clear, normal rate and effort. Heart is regular, no murmur gallop or rub. Abdomen is soft, non distended. Some right upper quadrant tenderness without guarding or rebound. Extremities are free of edema. Objective Imaging HIDA: Radiologist's impression: Normal gallbladder ejection fraction. Labs 01/16/24 08:25 01/16/24 08:25 Labs: Laboratory Results - last 24 hr 01/16/24 08:25 WBC 14.2 H RBC 3.63 L Hgb 9.9 L Hct 29.3 L MCV 80.8 MCH 27.3 MCHC 33.8 RDW 16.2 H Plt Count 316 Neut % (Auto) 79.7 H Lymph % (Auto) 11.0 L [place] % (Auto) 8.2 Eos % (Auto) 0.6 L Baso % (Auto) 0.5 Neut # (Auto) 06792 H Lymph # (Auto) 1600 [place] # (Auto) 1200 H Eos # (Auto) 100 Baso # (Auto) 100 Sodium 137 Potassium 3.3 L Chloride 108 H Carbon Dioxide 23 BUN 5 L Creatinine 0.81 Estimated GFR > 60 BUN/Creatinine Ratio 6.2 Glucose 117 H Lactate 1.1 Calcium 8.5 Total Bilirubin 0.3 AST 38 H ALT 38 H Alkaline Phosphatase 58 Total Protein 6.2 L Albumin 3.2 L Globulin 3.0 Albumin/Globulin Ratio 1.1 Lipase 30 D PFS Social History household members: children Smoking Status: Never smoker alcohol intake: former Assessment & Plan Assessment & Plan narrative: 1. Colitis, present on admission and active. 2. Recent tooth infection with 3 days of recent Augmentin. Present on admission and stable. 3. Leukocytosis, present on admission and improving. Normal today. 4. ALBERT, present on admission and improving. 2.12 to 1.44. 5. Hearing impaired, present on admission and stable. 6. Severe gastritis on EGD, new and active. 7. Hypokalemia, new and active. PLAN: -replete potassium, IV. -continue PPI IV b.i.d., gastric biopsies pending. -increase dose of Zofran and see if this is more effective. -continue IV fluids and other symptomatic care. -monitor right upper quadrant tenderness. TANA: 01/16 if her symptoms improve and she can take oral fluids. Time-Based Coding :: [TOTAL MINUTES] spent with patient and on the chart (including review of chart, obtaining history, exam, reviewing outside data, placing orders, documenting exam and treatment plan, and counseling patient) on [DATE]. Quality VTE Deep Vein Thrombosis/Pulmonary Embolism Present on Admission: No
[2024-01-16] MEDS: POTASSIUM CHLORIDE IN WATER 10 MEQ/100 ML PIGGYBACK 100 MEQ IV ×4 (14:39→18:09)
[2024-01-16] MEDS: SUCRALFATE 1 GM/10 ML ORAL SUSP PO (17:22)
[2024-01-17] VITALS (7 sets, daily range): BP systolic 131–151; BP diastolic 85–102; PULSE 60–85; RESP 16–18; TEMP 36.7–37.1; O2SAT 93–100
[2024-01-17] MEDS: LORazepam 2 MG/ML INJ 0.5 MG IV ×2 (00:15→22:01)
[2024-01-17] MEDS: SUCRALFATE 1 GM/10 ML ORAL SUSP PO ×4 (00:15→19:00)
[2024-01-17] MEDS: PROMETHAZINE 25 MG SUPP PR (02:39)
[2024-01-17] MEDS: metroNIDAZOLE 500 MG/100 ML PIGGYBACK 100 MG IV ×3 (04:54→20:21)
[2024-01-17] MEDS: SODIUM CHLORIDE 0.9% 1,000 ML 100 ML IV ×2 (04:56→22:00)
[2024-01-17 05:31] LABS: BUN Creatinine Ratio 3.6 (6-22); Blood Urea Nitrogen 3 mg/dL (7-17); Calcium 8.2 mg/dL (8.4-10.2); Carbon Dioxide 23 mmol/L (22-32); Chloride 109 mmol/L (98-107); Estimated Glomerular Filt Rate > 60 mL/min (>60); Glucose 96 mg/dL (70-100); HEMOLYSIS < 15 (0-50); Potassium 3.2 mmol/L (3.4-5.1); Sodium 140 mmol/L (137-145)
--- NOTE | 2024-01-17 08:04 | P.PN_ITS ---
Subjective Subjective Interval history: Summary: Patient presented with diarrhea which stopped at the time of admission. She also has had intractable nausea and vomiting. Initial scanning indicated colitis. Her symptoms have been persistent. A repeat CT scan was suggestive of cholecystitis and this is supported by a follow up ultrasound. Surgery is consulted, HIDA was normal. She underwent EGD on 01/15 revealing gastritis. She continues to have right upper quadrant tenderness on exam. S: She was feeling somewhat better today and smiling for the 1st time since being in the hospital. Her nausea is present but much improved. Her epigastric abdominal pain is also improved. Exam Vital Signs (past 8 hours): - 01/17/24 04:00 Temperature 98.5 F Pulse Rate 62 Respiratory Rate 16 Blood Pressure 151/102 H Pulse Oximetry 93 Oxygen Flow Rate 0 Oxygen Delivery Method Room Air Oxygen Flow Rate 0 Narrative Exam Narrative: NAD, alert and oriented. Fluent speech. Lungs are clear, normal rate and effort. Heart is regular, no murmur gallop or rub. Abdomen is soft, non distended. Extremities are free of edema. Objective Imaging Multiple studies:: Radiologist's impression: CT abdomen 1.: IMPRESSION: Mildly distended liquid proximal colonic contents, possibly colitis. No small bowel obstruction. No obstructing calcified stone or hydronephrosis Prominent adnexal structures, probably ovarian cysts. Consider ultrasound if there is further concern. Other findings as above. CTA abdomen 2: Heterogeneous enhancement of the bilateral kidneys suspicious for pyelonephritis. No evidence for perinephric fluid collection or abscess. Recommend clinical and laboratory correlation. Visualized urinary bladder appears unremarkable for degree of distension. Mild gallbladder distension with new pericholecystic fluid. No CT evidence for cholelithiasis. Findings may represent reactive cholecystitis given adjacent changes of the right kidney. Consider further evaluation with ultrasound if clinically needed. Persistent fluid-filled proximal colon without wall thickening or pericolonic stranding. Findings are nonspecific but may be seen with colitis. Persistent bilateral ovarian cystic lesions likely representing ovarian cysts. If there are localizing symptoms, further evaluation with pelvic ultrasound can be considered. Right upper quadrant ultrasound: Mild gallbladder wall thickening near the gallbladder neck with pericholecystic fluid and abnormal sonographic Mccoy sign. Findings are suggestive of acute cholecystitis. No evidence for cholelithiasis. HIDA: IMPRESSION: Normal gallbladder ejection fraction. Labs 01/17/24 04:36 01/17/24 04:36 Labs: Laboratory Results - last 24 hr 01/16/24 01/17/24 08:25 04:36 WBC 14.2 H RBC 3.63 L Hgb 9.9 L Hct 29.3 L MCV 80.8 MCH 27.3 MCHC 33.8 RDW 16.2 H Plt Count 316 Neut % (Auto) 79.7 H Lymph % (Auto) 11.0 L [place] % (Auto) 8.2 Eos % (Auto) 0.6 L Baso % (Auto) 0.5 Neut # (Auto) 09481 H Lymph # (Auto) 1600 [place] # (Auto) 1200 H Eos # (Auto) 100 Baso # (Auto) 100 Sodium 137 140 Potassium 3.3 L 3.2 L Chloride 108 H 109 H Carbon Dioxide 23 23 BUN 5 L 3 L Creatinine 0.81 0.83 Estimated GFR > 60 > 60 BUN/Creatinine Ratio 6.2 3.6 L Glucose 117 H 96 Lactate 1.1 Calcium 8.5 8.2 L Total Bilirubin 0.3 AST 38 H ALT 38 H Alkaline Phosphatase 58 Total Protein 6.2 L Albumin 3.2 L Globulin 3.0 Albumin/Globulin Ratio 1.1 Lipase 30 D [facility] Social History household members: children Smoking Status: Never smoker alcohol intake: former Assessment & Plan Assessment & Plan narrative: 1. Colitis, present on admission and active. 2. Gastritis on EGD, present on admission and improving. 3. Right upper quadrant abdominal pain on exam with abnormal ultrasound and normal HIDA, present on admission and improving. 4. Recent tooth infection with 3 days of recent Augmentin. Present on admission and stable. 5. Leukocytosis, present on admission and improved. 6. ALBERT, present on admission and resolved. 5. Hearing impaired, present on admission and stable. 6. Severe gastritis on EGD, new and active. 7. Hypokalemia, new and active. PLAN: -replete potassium, IV. -continue PPI IV b.i.d., gastric biopsies pending. Carafate. -increase dose of Zofran and see if this is more effective. -continue IV fluids and other symptomatic care. -monitor right upper quadrant tenderness. TANA: 01/17 if her symptoms improve and she can take oral fluids. Time-Based Coding :: [TOTAL MINUTES] spent with patient and on the chart (including review of chart, obtaining history, exam, reviewing outside data, placing orders, documenting exam and treatment plan, and counseling patient) on [DATE]. Quality VTE Deep Vein Thrombosis/Pulmonary Embolism Present on Admission: No
[2024-01-17 08:28] LABS: Hematocrit 30.5 % (36-46); Hemoglobin 10.2 g/dL (12.0-16.0); Mean Corpuscular HGB Conc 33.5 % (30-36); Mean Corpuscular Hemoglobin 27.3 PG (26-34); Mean Corpuscular Volume 81.4 fL (80-100); Platelet Count 325 X10^3/uL (150-400); Red Blood Cell Count 3.74 X10^6/uL (4.0-5.2); Red Cell Distribution Width 16.1 % (11.6-14.8); White Blood Cell Count 10.9 X10^3/uL (4.5-11.0)
[2024-01-17 08:52] LABS: Magnesium 1.4 mg/dL (1.6-2.3)
--- NOTE | 2024-01-17 09:35 | DIET.CONS ---
Dietary Consultation Note Admission Date: 01/12/2024 04:12 Assessment: 39 y F admitted for abd pain, found to have colitis and severe gastritis. Nutrition screened for LOS. Pt with 5 days of inadequate oral intakes. Pt was on regular diet for 2 days (01/11-01/12), but per chart, refused meals/ ate 0%. Has been unable to tolerate CLD. Refused breakfast tray this morning. Ht: 154.94 cm Wt: 66 kg BMI: 27.5 UBW: 68.039 kg on 10/22/23, 64.864 kg on 04/02/23 - no significant weight loss Last BM: 01/14/24 (01/14/24 17:51) MNA: Jak Score: 20 Diet: 01/15/24 Dinner Clear Liquid Diet Diet Modifications: Nutrition Percent Meal Consumed 0% 01/16/24 18:16 Percent Meal Consumed 0% 01/16/24 06:00 Labs: RBC 3.74 X10^6/uL (4.0-5.2) L 01/17/24 04:36 Hgb 10.2 g/dL (12.0-16.0) L 01/17/24 04:36 Hct 30.5 % (36-46) L 01/17/24 04:36 Creatinine 0.83 mg/dL (0.52-1.04) 01/17/24 04:36 Lactate 1.1 mmol/L (0.7-2.1) 01/16/24 08:25 Nutrition Diagnosis: Inadequate oral intakes r/t nausea/vomiting aeb <25% estimated energy intake for 5 days Interventions: -If pt unable to tolerate diet today, consider start of nutrition support -Added Ensure Clear w/ meals Monitoring/Evaluations: po intakes Electronically Signed by: Ratna Mata 01/17/24 09:35 Clinical Dietitian [address] [id number]
[2024-01-17] MEDS: CIPROFLOXACIN 400 MG/200 ML PIGGYBACK 200 MG IV ×2 (10:06→21:22)
[2024-01-17] MEDS: FAMOTIDINE 20 MG/2 ML VIAL IV ×2 (10:07→20:21)
[2024-01-17] MEDS: PANTOPRAZOLE 40 MG VIAL IV ×2 (10:07→20:21)
[2024-01-17] MEDS: MAGNESIUM SULFATE 2 GM/50 ML PIGGYBACK IV (12:13)
--- NOTE | 2024-01-17 14:06 | PC.NURSE ---
Addendum entered by Raquel Benavidez R.N. 01/17/24 19:53: Potassium iv riders have been infusing at 50cc/hr, patient was unable to tolerate them at 100cc/hr as her iv was tender and soar. Original Note: Patient has been sleeping most of shift. She is tolerating her iv Magnesium and will be getting iv antibiotics and potassium riders.
[2024-01-17] MEDS: POTASSIUM CHLORIDE IN WATER 10 MEQ/100 ML PIGGYBACK 100 MEQ IV ×5 (15:18→21:31)
[2024-01-18] VITALS (8 sets, daily range): BP systolic 117–155; BP diastolic 77–96; PULSE 64–79; RESP 15–21; TEMP 36.6–37; O2SAT 95–98
[2024-01-18] MEDS: SUCRALFATE 1 GM/10 ML ORAL SUSP PO ×5 (00:07→23:30)
[2024-01-18] MEDS: metroNIDAZOLE 500 MG/100 ML PIGGYBACK 100 MG IV ×3 (04:19→20:37)
[2024-01-18] MEDS: SODIUM CHLORIDE 0.9% 1,000 ML 100 ML IV ×2 (04:22→23:27)
[2024-01-18 06:12] LABS: Hematocrit 32.3 % (36-46); Hemoglobin 10.8 g/dL (12.0-16.0); Mean Corpuscular HGB Conc 33.4 % (30-36); Mean Corpuscular Volume 80.9 fL (80-100); Platelet Count 354 X10^3/uL (150-400); Red Blood Cell Count 3.99 X10^6/uL (4.0-5.2); Red Cell Distribution Width 15.7 % (11.6-14.8); White Blood Cell Count 11.2 X10^3/uL (4.5-11.0)
[2024-01-18 06:15] LABS: BUN Creatinine Ratio 3.9 (6-22); Blood Urea Nitrogen 3 mg/dL (7-17); Calcium 8.1 mg/dL (8.4-10.2); Carbon Dioxide 25 mmol/L (22-32); Chloride 105 mmol/L (98-107); Estimated Glomerular Filt Rate > 60 mL/min (>60); Glucose 93 mg/dL (70-100); HEMOLYSIS < 15 (0-50); Potassium 2.9 mmol/L (3.4-5.1); Sodium 136 mmol/L (137-145)
[2024-01-18] MEDS: METOCLOPRAMIDE 10 MG/2 ML INJ 5 MG IV (09:06)
[2024-01-18] MEDS: CIPROFLOXACIN 400 MG/200 ML PIGGYBACK 200 MG IV ×2 (09:06→21:57)
[2024-01-18 09:07] LABS: Magnesium 1.6 mg/dL (1.6-2.3)
[2024-01-18] MEDS: FAMOTIDINE 20 MG/2 ML VIAL IV ×2 (09:07→20:36)
[2024-01-18] MEDS: PANTOPRAZOLE 40 MG VIAL IV ×2 (09:07→20:33)
[2024-01-18] MEDS: POTASSIUM CHLORIDE IN WATER 10 MEQ/100 ML PIGGYBACK 100 MEQ IV (10:52)
--- NOTE | 2024-01-18 11:31 | DIET.CONS ---
Addendum entered by Ratna Mata 01/18/24 15:47: Diet was advanced to fulls for lunch. Was informed by unit host pt drank protein smoothie and ordered another for dinner. Will continue to provide protein supplement TID with meals. Original Note: Dietary Consultation Note Admission Date: 01/12/2024 04:12 Assessment: Pt declined breakfast tray this morning. Pt without po intakes for 6 days. Discussed in team rounds. Per RN, pt may be interested in other food options besides items on a clear liquid diet if diet is able to be advanced. Attempted to met with pt before lunch, was sleeping. Will check in this afternoon. Ht: 154.94 cm Wt: 66 kg BMI: 27.5 Last BM: 01/14/24 (01/14/24 17:51) MNA: Jak Score: 20 Diet: 01/15/24 Dinner Clear Liquid Diet Diet Modifications: Nutrition Percent Meal Consumed pt ref breakfast 01/17/24 08:00 Percent Meal Consumed 0% 01/16/24 18:16 Labs: RBC 3.99 X10^6/uL (4.0-5.2) L 01/18/24 05:10 Hgb 10.8 g/dL (12.0-16.0) L 01/18/24 05:10 Hct 32.3 % (36-46) L 01/18/24 05:10 Creatinine 0.77 mg/dL (0.52-1.04) 01/18/24 05:10 Lactate 1.1 mmol/L (0.7-2.1) 01/16/24 08:25 Electronically Signed by: Ratna Mata 01/18/24 11:31 Clinical Dietitian [address] [address]
[2024-01-18] MEDS: MAGNESIUM SULFATE 2 GM/50 ML PIGGYBACK IV (11:55)
[2024-01-18] MEDS: POTASSIUM CHLORIDE IN WATER 10 MEQ/100 ML PIGGYBACK 50 MEQ IV ×5 (12:58→21:57)
--- NOTE | 2024-01-18 13:16 | PM.PN.1 ---
Subjective Subjective Date Patient Seen: 01/18/24 Time Patient Seen: 08:30 Interval history: Summary: Patient presented with diarrhea which stopped at the time of admission. She also has had intractable nausea and vomiting. Initial scanning indicated colitis. Her symptoms have been persistent. A repeat CT scan was suggestive of cholecystitis and this is supported by a follow up ultrasound. Surgery is consulted, HIDA was normal. She underwent EGD on 01/15 revealing gastritis. She continues to have right upper quadrant tenderness on exam. S: The patient reports ongoing abdominal discomfort and nausea. However she wishes to advance her diet to full liquid as she is feeling somewhat better. Exam Vital Signs (past 8 hours): - 01/18/24 08:00 01/18/24 08:00 01/18/24 12:00 Temperature 98.6 F 98.6 F Pulse Rate 64 68 Respiratory Rate 15 21 Blood Pressure 155/90 H 138/90 Pulse Oximetry 96 96 Oxygen Delivery Method Room Air Oxygen Flow Rate 0 0 Oxygen Delivery Method Room Air Oxygen Flow Rate 0 Narrative Exam Narrative: NAD, alert and oriented. Fluent speech. Lungs are clear, normal rate and effort. Heart is regular, no murmur gallop or rub. Abdomen is soft, non distended. Extremities are free of edema. Objective Labs 01/18/24 05:10 01/18/24 05:10 Labs: Laboratory Results - last 24 hr 01/18/24 05:10 WBC 11.2 H RBC 3.99 L Hgb 10.8 L Hct 32.3 L MCV 80.9 MCH 27.0 MCHC 33.4 RDW 15.7 H Plt Count 354 Sodium 136 L Potassium 2.9 L Chloride 105 Carbon Dioxide 25 BUN 3 L Creatinine 0.77 Estimated GFR > 60 BUN/Creatinine Ratio 3.9 L Glucose 93 Calcium 8.1 L Magnesium 1.6 PFSH Social History household members: children Smoking Status: Never smoker alcohol intake: former Assessment & Plan Assessment & Plan narrative: 1. Colitis, present on admission and active. 2. Gastritis on EGD 01/16/2024, present on admission and improving. 3. Right upper quadrant abdominal pain on exam with abnormal ultrasound 01/14/2024 and normal HIDA 01/15/2024, present on admission and improving. Surgery following. 4. Recent tooth infection with 3 days of recent Augmentin. Present on admission and stable. 5. Leukocytosis, present on admission and improved. 6. ALBERT, present on admission and resolved. 5. Hearing impaired, present on admission and stable. 6. Severe gastritis on EGD, new and active. 7. Hypokalemia, new and active. PLAN: -replete potassium, IV. -continue PPI IV b.i.d., gastric biopsies pending. Carafate. -continue IV fluids and other symptomatic care. -monitor right upper quadrant tenderness. -advanced to full liquid diet, monitor TANA: 01/18 if her symptoms improve and she can full liquid diet Time-Based Coding :: [TOTAL MINUTES] spent with patient and on the chart (including review of chart, obtaining history, exam, reviewing outside data, placing orders, documenting exam and treatment plan, and counseling patient) on [DATE]. Quality VTE Deep Vein Thrombosis/Pulmonary Embolism Present on Admission: No [facility] PROFEE Charge codes Subsequent inpatient/observation care: 52412 Lab Results Common Lab Results- Last: White Blood Count 11.2 X10^3/uL (4.5-11.0) H 01/18/24 Red Blood Count 3.99 X10^6/uL (4.0-5.2) L 01/18/24 Hemoglobin 10.8 g/dL (12.0-16.0) L 01/18/24 Hematocrit 32.3 % (36-46) L 01/18/24 Mean Corpuscular Volume 80.9 fL (80-100) 01/18/24 Mean Corpuscular Hemoglobin 27.0 PG (26-34) 01/18/24 Mean Corpuscular Hemoglobin Concent 33.4 % (30-36) 01/18/24 Red Cell Distribution Width 15.7 % (11.6-14.8) H 01/18/24 Platelet Count 354 X10^3/uL (150-400) 01/18/24 Neutrophils (%) (Auto) 79.7 % (50-75) H 01/16/24 Lymphocytes (%) (Auto) 11.0 % (25-40) L 01/16/24 Monocytes (%) (Auto) 8.2 % (3-14) 01/16/24 Eosinophils (%) (Auto) 0.6 % (2-4) L 01/16/24 Basophils (%) (Auto) 0.5 % (0-2) 01/16/24 Neutrophils # (Auto) 96246 /uL (7315-8356) H 01/16/24 Sodium Level 136 mmol/L (137-145) L 01/18/24 Potassium Level 2.9 mmol/L (3.4-5.1) L 01/18/24 Chloride Level 105 mmol/L (98-107) 01/18/24 Carbon Dioxide Level 25 mmol/L (22-32) 01/18/24 Blood Urea Nitrogen 3 mg/dL (7-17) L 01/18/24 Creatinine 0.77 mg/dL (0.52-1.04) 01/18/24 Estimat Glomerular Filtration Rate > 60 mL/min (>60) 01/18/24 BUN/Creatinine Ratio 3.9 (6-22) L 01/18/24 Glucose Level 93 mg/dL (70-100) 01/18/24 Calcium Level 8.1 mg/dL (8.4-10.2) L 01/18/24 Total Bilirubin 0.3 mg/dL (0.2-1.3) 01/16/24 Aspartate Amino Transf (AST/SGOT) 38 IU/L (14-36) H 01/16/24 Alanine Aminotransferase (ALT/SGPT) 38 IU/L (<35) H 01/16/24 Alkaline Phosphatase 58 U/L (38-126) 01/16/24 Total Protein 6.2 g/dL (6.3-8.2) L 01/16/24 Albumin 3.2 g/dL (3.5-5.0) L 01/16/24 Globulin 3.0 g/dL (1.7-4.1) 01/16/24 Albumin/Globulin Ratio 1.1 (1.0-2.8) 01/16/24 Alanine Aminotransferase (ALT/SGPT) 38 IU/L (<35) H 01/16/24 Aspartate Amino Transf (AST/SGOT) 38 IU/L (14-36) H 01/16/24 Blood Urea Nitrogen 3 mg/dL (7-17) L 01/18/24 Creatinine 0.77 mg/dL (0.52-1.04) 01/18/24 Estimat Glomerular Filtration Rate > 60 mL/min (>60) 01/18/24 BUN/Creatinine Ratio 3.9 (6-22) L 01/18/24 Clostridium difficile Toxin (PCR) Not detected (Not Detect) 01/14/24 Hemoglobin 10.8 g/dL (12.0-16.0) L 01/18/24 Red Blood Count 3.99 X10^6/uL (4.0-5.2) L 01/18/24 Hematocrit 32.3 % (36-46) L 01/18/24 Lipase 30 U/L (23-300) 01/16/24 Platelet Count 354 X10^3/uL (150-400) 01/18/24 Prothrombin Time 11.9 SECONDS (10.1-12.7) 01/13/16
--- NOTE | 2024-01-18 13:40 | CM.DPC ---
DCP Continued: Reviewed EMR and team rounds for pt?s medical status. Per rounds, pt's potassium is low and has not been able to tolerate oral intake for the past 6 days. Discussing other nutrition options with dietary staff, hoping to advance to full liquid diet. Family support includes mother who is local and children. Plan: Anticipating discharge 01/18 if symptoms improve and can tolerate a full liquid diet. CM Team will continue to follow for coordination of discharge plans. TERRENCE Yost
[2024-01-19] MEDS: metroNIDAZOLE 500 MG/100 ML PIGGYBACK 100 MG IV (04:06)
[2024-01-19] MEDS: SUCRALFATE 1 GM/10 ML ORAL SUSP PO (05:55)
[2024-01-19 07:01] LABS: Hematocrit 31.3 % (36-46); Hemoglobin 10.4 g/dL (12.0-16.0); Mean Corpuscular HGB Conc 33.2 % (30-36); Mean Corpuscular Hemoglobin 26.8 PG (26-34); Mean Corpuscular Volume 80.9 fL (80-100); Platelet Count 343 X10^3/uL (150-400); Red Blood Cell Count 3.87 X10^6/uL (4.0-5.2); Red Cell Distribution Width 15.8 % (11.6-14.8); White Blood Cell Count 11.3 X10^3/uL (4.5-11.0)
[2024-01-19 07:08] LABS: BUN Creatinine Ratio 4.1 (6-22); Blood Urea Nitrogen 3 mg/dL (7-17); Calcium 8.3 mg/dL (8.4-10.2); Carbon Dioxide 23 mmol/L (22-32); Chloride 107 mmol/L (98-107); Estimated Glomerular Filt Rate > 60 mL/min (>60); Glucose 95 mg/dL (70-100); HEMOLYSIS < 15 (0-50); Potassium 3.4 mmol/L (3.4-5.1); Sodium 136 mmol/L (137-145)
[2024-01-19 07:45] VITALS: O2SAT 98
--- NOTE | 2024-01-19 10:55 | PM.DS.1 ---
History of Present Illness History of Present Illness Date Patient Seen: 01/19/24 Time Patient Seen: 07:55 Date of Onset of Symptoms: 01/11/24 Chief complaint: abd pain Narrative: 39 year old female with no significant past medical history other than legally deaf presents with nausea, vomiting, diarrhea and abdominal pain. Per the patient's report, on 01/07/24, the patient had a tooth infection and was prescribed Augmentin. The patient states that after taking Augmentin for 2-3 days, the patient started to nausea, non bloody vomiting/diarrhea. The patient states that due to her severe nausea and vomiting, the patient couldn't take much the rest of her Augmentin. The patient also developed some right sided, moderate, aching abdominal pain since. Otherwise, the patient denies any fever, chills, chest pain, shortness of breath or dysuria. In our ER, the patient was hemodynamically stable. WBC was 14 but no other sign of sepsis. CT scan of abdomen shows possible localized colitis. C dif was sent. Patient received one dose of zosyn. UA was negative. Cr was 2.2 but after 2L of IVF Cr only improved to 1.9. Our ER physician requested admission for further treatment. She still has persistent nausea. No bowel movements since arrival. Her abdominal pain is 4/10 on the right lower abdomen. No one at home has been ill, she lives with her son. No chest pain, or dyspnea. Discharge Providers Provider Date of admission: 01/12/24 04:12 Discharge Date: 01/19/24 Primary care physician: Doctor Adri MD Discharge provider: Librado Gomez MD Summary Hospital Course Discharge Diagnosis: 1. Colitis, present on admission and active. 2. Gastritis on EGD 01/16/2024, present on admission and improving. 3. Right upper quadrant abdominal pain on exam with abnormal ultrasound 01/14/2024 and normal HIDA 01/15/2024, present on admission and improving. Surgery following. 4. Recent tooth infection with 3 days of recent Augmentin. Present on admission and stable. 5. Leukocytosis, present on admission and improved. 6. ALBERT, present on admission and resolved. 5. Hearing impaired, present on admission and stable. 6. Severe gastritis on EGD, new and active. 7. Hypokalemia, new and active. Hospital Course: The patient was admitted and treated with broad-spectrum antibiotics, IV proton pump inhibitor and surgery consultation obtained. She was not felt to have acute cholecystitis clinically. EGD showed gastritis with gastric biopsies pending at discharge. She was treated with IV fluids and the hypokalemia repleted. Leukocytosis ultimately improved and resolved. Cultures returned negative. She was simply significantly better, able to tolerate a full liquid diet and interested in discharge home to advance diet further in at home. No other issues arose. Status at Discharge Cognitive/behavioral status at discharge: oriented Functional status at discharge: independent ambulation Overall status at discharge: patient is back to baseline Time Spent with Patient Time spent: Less than 30 minutes Exam Vital Signs (past 8 hours): - 01/19/24 07:45 01/19/24 07:45 Pulse Oximetry 98 Oxygen Delivery Method Room Air Room Air Oxygen Flow Rate 0 Oxygen Delivery Method Room Air Oxygen Flow Rate 0 Narrative Exam Narrative: NAD, alert and oriented. Fluent speech. Lungs are clear, normal rate and effort. Heart is regular, no murmur gallop or rub. Abdomen is soft, non distended. Extremities are free of edema. Objective Labs 01/19/24 06:15 01/19/24 06:15 Labs: Laboratory Results - last 24 hr 01/19/24 06:15 WBC 11.3 H RBC 3.87 L Hgb 10.4 L Hct 31.3 L MCV 80.9 MCH 26.8 MCHC 33.2 RDW 15.8 H Plt Count 343 Sodium 136 L Potassium 3.4 Chloride 107 Carbon Dioxide 23 BUN 3 L Creatinine 0.73 Estimated GFR > 60 BUN/Creatinine Ratio 4.1 L Glucose 95 Calcium 8.3 L [facility] Social History household members: children Smoking Status: Never smoker alcohol intake: former Discharge Plan Discharge Plan Patient Disposition: Home Provider Discharge Comment: Followup with Dr. Nola Lora this week Discharge orders & Medications Prescriptions: New amoxicillin-pot clavulanate 875-125 mg tablet 1 tab PO BID Qty: 6 0RF pantoprazole [Protonix] 40 mg tablet,delayed release (DR/EC) 40 mg PO BID Qty: 60 1RF famotidine [Pepcid] 20 mg tablet 20 mg PO BID Qty: 60 1RF ondansetron 8 mg tablet,disintegrating 8 mg translingual Q8H PRN (Reason: nausea and vomiting) 1 Days Qty: 30 3RF sucralfate [Carafate] 100 mg/mL suspension 10 ml PO QID Qty: 1000 1RF Rx Instructions: swish in mouth and swallow; use after food/drink ciprofloxacin HCl [Cipro] 500 mg tablet 500 mg PO BID Qty: 6 0RF metronidazole 500 mg tablet 500 mg PO BID Qty: 6 0RF promethazine 25 mg tablet 25 mg PO TID PRN (Reason: nausea and vomiting) Qty: 20 0RF Continued topiramate 25 mg tablet 25 mg PO BID dextroamphetamine-amphetamine 20 mg capsule,extended release 24hr 1 cap PO QAM ipratropium bromide 21 mcg (0.03 %) spray,non-aerosol 2 spray intranasal BID PRN (Reason: Nasal/sinus congestion) Qty: 30 0RF Rx Instructions: administer into each nostril Discontinued amoxicillin-pot clavulanate 875-125 mg tablet 1 tab PO Q12H 10 Days Qty: 20 0RF Follow up/Referrals: Doctor Rush MD [Primary Care Provider] - Diet/Activity/Treatments Diet: Diet as Tolerated Visit Report/Discharge Packet Instructions: DI for Gastritis Stand Alone Forms: Patient Portal/API Discharge Data Primary Care Provider: Doctor Adri Quality VTE Deep Vein Thrombosis/Pulmonary Embolism Present on Admission: No MIPS - Admit I confirm the patient?s Advance Care Plan is present, Code status is documented, Surrogate decision maker is in patient?s record [If Yes, STOP here]: Yes MIPS - Meds 'Current medications' to include all prescriptions, [id number] products, herbals, cannabis/cannabidiol products, and vitamin/mineral/dietary (nutritional) supplements. I have utilized all available resources to obtain, update, or review the patient?s current medications. [If Yes, STOP here]: Yes MIPS - DC The patient has a history of heart transplant or Left Ventricular Assist Device (LVAD). If yes, STOP here.: No The patient has current or prior documentation of left ventricular ejection fraction (LVEF) less than or equal to 40%, or moderate or severely depressed left ventricular systolic function.: No A. The patient was prescribed or already taking an Angiotensin-Converting Enzyme (SHAHZAD) Inhibitor, or Angiotensin Receptor Rebecca (ARB).: No B. The patient was prescribed or already taking a beta-rebecca. [If Yes to Both A & B, STOP here]: No Patient not prescribed/taking SHAHZAD or ARB, no reason given.: No Patient not prescribed/taking beta-rebecca, no reason given.: No [facility] PROFEE Charge Codes Discharge inpatient/observation: 59040
--- NOTE | 2024-01-19 11:35 | CM.DPNOTE ---
DC Note Patient has been discharged home today, met with patient at bedside. Patient is deaf, she uses her cell phone to type what she wants to say and asks that visitors speak into the phone as it transcribes the message. Patient denies needs from this [employer], says her apt is across the street and would like to walk home. Oneil, pharmacist, reviewing patient's medications. Plan: Discharge home w/family and close outpatient follow up. LEYDA
--- NOTE | 2024-01-19 14:23 | PC.NURSE ---
Discharge: Pt feels ready to d/c to home. Pharmacist came up to see pt and reviewed new meds with her. SS saw pt. here this am and gave pt d/c instructions. All d/c instructions were given using the phone keesha she has. Reviewed d/c packet. Pt will make her own follow up appt. Her questions were answered. Pt d/c to home and voiced no complaints.
== END 2024-01-19 10:50 | disposition home or self-care (01) | DRG 392 ==
LOC: ED 01-12 04:10 → AC 01-12 04:13
PROVIDERS: Hospitalist; Surgery; Admitting Provider Internal Medicine; Emergency Provider Emergency Medicine; Referring Provider Emergency Medicine; Visit Provider Internal Medicine
PROC: 0DJ08ZZ Inspection of Upper Intestinal Tract, Via Natural or Artificial Opening Endoscopic (ICD-10-PCS; principal; 2024-01-16 15:15)
DX: K52.9 Noninfective gastroenteritis and colitis, unspecified (principal); N17.9 Acute kidney failure, unspecified; K04.7 Periapical abscess without sinus; H91.90 Unspecified hearing loss, unspecified ear; K29.70 Gastritis, unspecified, without bleeding; E87.6 Hypokalemia
CPT/HCPCS: 36415; 43239; 74176; 74177; 76705; 78227; 80048; 80053; 81003; 81015; 81025; 82140; 83605; 83690; 83735; 84484; 84702; 85025; 85027; 87507; 93005; 93010; 96361; 96365; 96375; 96376; 99231; 99232; 99284; 99291; A9537; J0360; J0744; J1170; J2060; J2405; J2470; J2543; J2704; J2765; J2805; J3475; Q9967

== ENCOUNTER → 2025-02-02 12:19 | Outpatient (CLI) | payer SELFPAY ==
[2024-01-12 05:30] VITALS: BMI 27.5
--- NOTE | 2025-02-02 12:27 | DI.RAD.S_ITS ---
PROCEDURE: XR LUMBAR SPINE 2-3V INDICATIONS: low back pain TECHNIQUE: 3 views of the lumbar spine were acquired. COMPARISON: None. FINDINGS: Bones: 5 [id number] vertebrae are present. There is normal bony alignment. No vertebral body compression fractures. No suspicious bony lesions. Soft tissues: Overlying bowel gas pattern is normal. No suspicious soft tissue calcifications. IMPRESSION: No acute bony abnormality. Dictated by: Chadwick Leigh M.D. on 02/02/2025 at 16:41 Approved by: Chadwick Leigh M.D. on 02/02/2025 at 16:42
== END ==
LOC: RAD 12:27
PROVIDERS: Referring Provider Physician Assistant Medical; Visit Provider Physician Assistant Medical
DX: M54.16 Radiculopathy, lumbar region (principal)
CPT/HCPCS: 72100